=== PATIENT | male | born 1935 | race Caucasian/White ===

== ENCOUNTER 2018-06-17 05:12 | Inpatient (IN) | payer OTHER ==
[2018-06-17] VITALS (8 sets, daily range): BP systolic 91–136; BP diastolic 55–83
[~2018-06-17] VITALS: Ht 182.9 cm; Wt 88.5 kg
[2018-06-17] MEDS ORDERED: ZYPREXA15 MG PO (05:32)
[2018-06-17] MEDS ORDERED: TYLENOL325 MG PO (05:51)
[2018-06-17] MEDS ORDERED: ASPIR 8181 MG PO (05:51)
[2018-06-17] MEDS ORDERED: CORRECTOL5 M1 PO (05:52)
[2018-06-17] MEDS ORDERED: LIPITOR40 MG PO (05:52)
[2018-06-17] MEDS ORDERED: PEPCID AC10 MG PO (05:53)
[2018-06-17] MEDS ORDERED: VITAMIN D1000 UNI1 PO (05:53)
[2018-06-17] MEDS ORDERED: LISINOPRIL5 MG PO (05:54)
[2018-06-17] MEDS ORDERED: NORCO 5-325 TA1 EACH PO (05:54)
[2018-06-17] MEDS ORDERED: NAMENDA 10 MG T10 MG PO (05:54)
[2018-06-17] MEDS ORDERED: LOPRESSOR25 PO (05:55)
[2018-06-17] MEDS ORDERED: SEROQUEL 25 MG25 M1 PO (05:56)
[2018-06-17] MEDS ORDERED: MILK OF MA2400 MG/11 PO (05:56)
[2018-06-17] MEDS ORDERED: MIRALAX17 GM PO (05:56)
[2018-06-17] MEDS ORDERED: SENNA-S LAXATI1 EACH PO (05:57)
[2018-06-17] MEDS ORDERED: TRAZODONE HCL100 MG PO (06:00)
[2018-06-17 06:01] LABS: ABSOLUTE NEUTROPHILS 4.7 thou/uL (1.4-8.2); BASOPHILS 0.8 % (0.0-2.0); EOSINOPHILS 4.1 % (0.0-3.0); HEMATOCRIT 44.9 % (42.0-52.0); HEMOGLOBIN 14.8 gm/dL (14.0-18.0); MCHC 32.9 g/dL (28.0-37.0); MONOCYTES 10.1 % (1.0-8.0); PLATELET COUNT 241 thou/uL (150-400); RBC 5.28 mil/uL (4.50-6.00); RDW 17.3 % (10.5-14.5); WBC 8.8 thou/uL (4.0-11.0)
[2018-06-17] MEDS ORDERED: EFFEXOR XR75 MG PO (06:02)
[2018-06-17 06:14] LABS: CALCIUM 8.9 mg/dL (8.5-10.1); CREATININE 1.2 mg/dL (0.7-1.3); POTASSIUM 3.8 mmol/L (3.5-5.1)
--- NOTE | 2018-06-17 08:10 | EKG ---
[address] [address] ELECTROCARDIOGRAM REPORT Name: DIAZ MARIN Room #: 421-P ADM IN M.R.#: [id number] ������������������ Admission: 06/17/18 ������������������ Attend Phys: Edu Kraft MD Discharge: ������������������ Date of : 37 Report #: [id number] ����������������������������������������������������������������� [id number] THIS REPORT FOR: //name// [facility] ED Test Date: 2018-06-17 Test Time: 05:47:36 Pat Name: DIAZ MARIN Department: Room: 421 Gender: M Director Of Customer Acquisition: EMIR : 1935 Requested By: Nathaniel Boogie Order Number: [id number] MD: Gopi Cruz Measurements Intervals [place] Rate: 57 P: 26 NV: 226 QRS: -13 QRSD: 164 T: 166 QT: 494 QTc: 481 Interpretive Statements Sinus rhythm Prolonged NV interval Left bundle branch block No previous ECG available for comparison Electronically Signed On 06-17-2018 8:10:23 CDT by Gopi Cruz [email or web address] ��������������������������������������������� <ELECTRONICALLY SIGNED> ���������������������������������������� By: Gopi Cruz MD ��������������������������������������������� 06/17/18 0810 0547 0547 Gopi Cruz MD /EMILEE
--- NOTE | 2018-06-17 10:40 | NUR ---
INITIAL ASSESSMENT: Pt evaluated for d/c planning needs. Reviewed chart and spoke with nurse, pt and pt's DPOA Kristopher Prieto. Pt had hip fracture in January while living in [place] and went to inpatient rehab there. Pt lives at [facility] with his . Pt uses walker for ambulation, and has foot drop with brace that he normally does not wear. Pt had home health in the past. Pt is scheduled to have surgery this afternoon. Will follow for d/c planning needs.
--- NOTE | 2018-06-17 13:32 | 2DMMODE ---
[facility] [place] [address] 2 D/M-MODE ECHOCARDIOGRAM Name: DIAZ MARIN Room #: 421-P [facility] IN .R.#: [id number] ������������� Admission: 06/17/18 ������������� Attend Phys: Edu Kraft MD Discharge: ��� ������������� ��� Date of : 37 Date of Service: 06/17/18 1331 �� Report #: [id number] �������� ��������������������������������������������[id number] THIS REPORT FOR: //name// APPROVED REPORT Study performed: 06/17/2018 12:45:46 EXAM: Comprehensive 2D, Doppler, and color-flow Echocardiogram Patient Location: Bedside Status: routine BSA: 2.11 HR: 61 bpm BP: 111/69 mmHg Rhythm: LBBB Other Information Study Quality: Adequate/flat on back, patient unable to move. Off axis windows. Indications Pre-Op. Hx: CABG, PAF, TIA, HTN, HLP. 2D Dimensions RVDd: 35.85 mm IVSd: 11.03 (7-11mm) LVOT Diam: 23.33 (18-24mm) LVDd: 46.64 mm PWd: 10.24 (7-11mm) LVDs: 32.65 (25-40mm) Aortic Root: 39.75 mm Volumes Left Atrial Volume (Systole) Single Plane 4CH: 44.05 mL Single Plane 2CH: 57.41 mL LA ESV Index: 25.00 mL/m2 Aortic Valve AoV Peak Jorge.: 1.39 m/s AO Peak Gr.: 7.72 mmHg LVOT Max P.14 mmHg LVOT Max V: 0.89 m/s RICHA Vmax: 2.73 cm2 Mitral Valve E/A Ratio: 0.6 MV Decel. Time: 274.81 ms [facility] [place] [address] 2 D/M-MODE ECHOCARDIOGRAM Name: DIAZ MARIN Room #: 421-P [facility] IN ..#: [id number] ������������� Admission: 06/17/18 ������������� Attend Phys: Edu Kraft MD Discharge: ��� ������������� ��� Date of : 37 Date of Service: 06/17/18 1331 �� Report #: [id number] �������� ��������������������������������������������[id number] MV E Max Jorge.: 0.57 m/s MV A Jorge.: 0.93 m/s MV PHT: 79.70 ms IVRT: 115.34 ms Pulmonary Valve PV Peak Jorge.: 0.85 m/s PV Peak Gr.: 2.89 mmHg Pulmonary Vein P Vein S: 0.39 m/s P Vein A: 0.23 m/s P Vein D: 0.24 m/s P Vein A Dur.: 92.3 msec P Vein S/D Ratio: 1.63 Tricuspid Valve TR Peak Jorge.: 2.11 m/s RAP Estimate: 5.00 mmHg TR Peak Gr.: 17.86 mmHg PA Pressure: 23.00 mmHg Left Ventricle The left ventricle is normal size. Paradoxical septal motion consistent with LBBB. There is normal left ventricular wall thickness. The left ventricular systolic function is low normal. LVEF is 50%. Mild diastolic dysfunction is present (impaired relaxation pattern). Right Ventricle The right ventricle is normal size. The right ventricular systolic function is normal. Atria The left atrium size is normal. The atrial septum is aneurysmal. The right atrium size is normal. Aortic Valve The Aortic valve is moderately sclerotic. No aortic regurgitation is present. There is no aortic valvular stenosis. Mitral Valve The mitral valve leaflets are normal in structure. Moderate mitral annular calcification. Mild mitral regurgitation. No evidence of mitral valve stenosis. Tricuspid Valve The tricuspid valve is normal in structure. Trace tricuspid regurgitation. Estimated PAP is 25mmHg. [address] [address] 2 D/M-MODE ECHOCARDIOGRAM Name: DIAZ MARIN Room #: 421-P [facility] IN .R.#: [id number] ������������� Admission: 06/17/18 ������������� Attend Phys: Edu Kraft MD Discharge: ��� ������������� ��� Date of : 37 Date of Service: 06/17/18 1331 �� Report #: [id number] �������� ��������������������������������������������[id number] Pulmonic Valve Pulmonic valve is not well visualized. Trace pulmonic regurgitation. Great Vessels Aortic root is mildly dilated at 4.0cm. Ascending aorta is not well visualized. IVC is normal in size and collapses >50% with inspiration. Pericardium There is no pericardial effusion. <Conclusion> The left ventricle is normal size. LVEF is 50%. The left atrium size is normal. The right atrium size is normal. The atrial septum is aneurysmal. The Aortic valve is moderately sclerotic. No aortic regurgitation is present. There is no aortic valvular stenosis. The mitral valve leaflets are normal in structure. Moderate mitral annular calcification. Mild mitral regurgitation. The tricuspid valve is normal in structure. Trace tricuspid regurgitation. Estimated PAP is 25mmHg. Pulmonic valve is not well visualized. Trace pulmonic regurgitation. Aortic root is mildly dilated at 4.0cm. There is no pericardial effusion. ��������������������������������������������� <ELECTRONICALLY SIGNED> ���������������������������������������� By: Angel Dyer MD ��������������������������������������������� 06/17/18 1331 30 30 Angel Dyer MD /INF
--- NOTE | 2018-06-17 14:34 | NUR ---
83 YO MALE ADMITTED TO 421 BY CART FROM ER. A&OX4, FIELD IV INTACT IN L AC. HEVER TRACTION IN PLACE TO LLE. C/O PAIN AT 6/10. ADMISSION ASSESSMENT COLPETE, NS STARTED @ 75/HR, MORPHINE 2MG IV GIVEN FOR PAIN. ORIENTED PT TO ROOM/CALL LIGHT. PT IS NPO, PLANS ARE TO HAVE SURGERY LATER TODAY. SURGERY CONSENT AND BLOOD TRANSFUSION CONSENT HAVE BEEN SIGNED, CASRTO WITH 16F PLACED.
[2018-06-17 17:19] LABS: HEMATOCRIT 42.5 % (42.0-52.0)
[2018-06-17 20:11] LABS: HEMATOCRIT 42.5 % (42.0-52.0)
[2018-06-18 00:02] VITALS: BP 126/66
[2018-06-18 01:00] VITALS: BP 101/68
[2018-06-18 02:00] VITALS: BP 112/71
[2018-06-18 05:11] LABS: HEMATOCRIT 38.3 % (42.0-52.0); HEMOGLOBIN 12.6 gm/dL (14.0-18.0); MCH 28.3 pg (26.0-34.0); MCV 85.8 fL (80.0-100.0); RBC 4.46 mil/uL (4.50-6.00); RDW 16.9 % (10.5-14.5)
[2018-06-18 05:26] LABS: CALCIUM 8.6 mg/dL (8.5-10.1); POTASSIUM 4.4 mmol/L (3.5-5.1)
--- NOTE | 2018-06-18 06:36 | NUR ---
ASSUMED PT CARE 2030 ON RETURN FROM SX. PT CONFUSED AND ALERT TO SELF. PT ASSESSMENT COMPLETED AND VSS. PT IMPULSIVE AND RESTLESS. PT REMOVED IV, AND BROKE CASTRO FROM STAT LOCK AND ATTEMPTED TO REMOVE CASTRO. CASTRO WAS FLUSHED AND ASSESSED FOR URINE OUTPUT. CASTRO IS STILL WORKING. PT ALSO REMOVED SURGICAL DRESSING AND ATTEMPTED TO REMOVE HEMOVAC. HEMOVAC IN PLACE AND DRAINING. PT WAS LOG ROLLED AND SURGICAL SITE WAS REDRESSED WITH XEROFORM, 4X4'S, AND ABD PADS THEN REINFORNCED WITH TAPE. ABDUCTOR PILLOW WAS OBTAINED AND APPLIED TO PT. ORDER FOR RESTRAINTS ALSO OBTAINED AT THIS TIME. SURGEON INFORMED THIS AM. WILL PASS REPORT ON TO DAY NURSE.
--- NOTE | 2018-06-18 06:58 | O ---
[address] [address] OPERATIVE REPORT Name: DIAZ MARIN Room #: 421-P [facility] IN M.R.#: [id number] Admission: 06/17/18 ������������������ Attend Phys: Edu Kraft MD Discharge: ������������������ Date of : 36 Report #: [id number] THIS REPORT FOR: //name// CC: Edu Hdz DATE OF SERVICE: 06/17/2018 SERVICE: Orthopedics. FACILITY: [facility]. SURGEON: Vish Hdz M.D. LEAD QA ANALYST: Jayda Hernandez NP. INDICATION FOR LEAD QA ANALYST: Retraction, reduction and assistance with reconstruction and internal fixation. PREOPERATIVE DIAGNOSIS: Left periprosthetic femoral shaft fracture. POSTOPERATIVE DIAGNOSIS: Left periprosthetic femoral shaft fracture. PROCEDURE: Open reduction and internal fixation of the left periprosthetic femoral shaft fracture. COMPLICATIONS: None. DRAINS: One Hemovac. SPECIMEN: None. ESTIMATED BLOOD LOSS: 750 mL. ANESTHESIA TYPE: General. FINDINGS: 1. Stable hip prosthesis. 2. Synthes large fragment lateral femoral plate. HISTORY: The patient is an 83-year-old gentleman who sustained a fall, which resulted in a left femoral shaft fracture. We had a discussion about treatment options with him and his durable power of document review attorney and they ultimately elected to undergo surgical treatment after the risks, benefits, alternatives and indications were discussed. Risks include but not limited to pain, bleeding, [address] [address] OPERATIVE REPORT Name: DIAZ MARIN Room #: 421-P ADM IN M.R.#: [id number] Admission: 06/17/18 ������������������ Attend Phys: Edu Kraft MD Discharge: ������������������ Date of : 36 Report #: [id number] injury to nerves or blood vessels, malunion, nonunion and complications related to anesthesia up to and including . PROCEDURE IN DETAIL: After left lower extremity was correctly identified in the preoperative holding area as the operative extremity, the patient was taken to the operating room where general anesthesia was induced without complication. Prophylactic antibiotic was administered at appropriate time. He was padded appropriately. Left leg was prepped and draped in standard sterile fashion. Timeout procedure performed. Standard lateral approach was made to the femur. Dissection was taken down to the IT band, which was then incised throughout the length of the incision and then the vastus lateralis was visualized and dissected the vastus lateralis off the intermuscular septum laterally working way down to the femur where the fracture could be visualized and was eventually exposed. During the exposure, the subperiosteal dissection was performed around the posterior side of the femur in order to allow passage of both reduction clamps and cerclage cables. 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 As this was encountered, it believed to have significant amount of bleeding until we could obtain hemostasis. It was a serpiginous shaped artery that was encountered on multiple occasions until I could control bleeding proximally and distally. After hemostasis was achieved and proceeded with fixation, a 1.0 mm cerclage wire was placed x 2 around the fracture after provisional fixation was achieved. Fracture site was cleaned of hematoma the fracture was irrigated. Then, the clamps x 2 were used to reduce the fracture while a reduction maneuver was performed. C-arm was used to assist as well. When good fixation was felt to be achieved with good reduction, the cerclage wires were then placed allowing good compression and stability of the fracture. The clamps were then removed. A long plate was selected to be utilized and bridge mode. The plate was placed over the lateral aspect of the femur and it was fixed distally and proximally with nonlocking screws utilizing a unicortical screw proximally and then the distal and then x-rays were taken and is happy with the appearance of the fracture and the reduction as well as the placement of the plates. We proceeded with internal fixation. The distal screws were placed first obtaining a total of 8 cortices of fixation with good screws bed with excellent purchase and then the fixation proximally. Ultimately, it was 2 unicortical locking screws with two large cerclage cables, rigid fixation was achieved. The wound was then copiously irrigated, 1 gram of vancomycin powder was placed within the wound. The IT band was closed over a drain with 0 Vicryl suture in gyjdkn-as-wkbor fashion. The skin was closed with 2-0 Vicryl followed by skin janet. Sterile [address] [address] OPERATIVE REPORT Name: DIAZ MARIN Room #: 421-P [facility] IN M.R.#: [id number] Admission: 06/17/18 ������������������ Attend Phys: Edu Kraft MD Discharge: ������������������ Date of : 37 Report #: [id number] dressings applied. The patient was awakened from anesthesia and taken to recovery room in stable condition. No complications. All counts correct. ��������������������������������������������� <ELECTRONICALLY SIGNED> ���������������������������������������� By: Vish Hdz MD ��������������������������������������������� 06/18/18 0658 2129 0029 Vish Hdz MD /nt
--- NOTE | 2018-06-18 07:55 | EKG ---
[place] [address] [facility] [place] [address] ELECTROCARDIOGRAM REPORT Name: DIAZ MARIN Room #: 421-P ADM IN M.R.#: [id number] ������������������ Admission: 06/17/18 ������������������ Attend Phys: Edu Kraft MD Discharge: ������������������ Date of : 36 Report #: [id number] ����������������������������������������������������������������� [id number] THIS REPORT FOR: //name// [facility] Test Date: 2018-06-17 Test Time: 19:40:21 Pat Name: DIAZ MARIN Department: Room: 421 P Gender: M Crossing Gateman: Criselda RIDER : 1935 Requested By: Alina Velazquez Order Number: [id number] MD: Isaac Goode Measurements Intervals [place] Rate: 86 P: -14 NH: 145 QRS: -38 QRSD: 155 T: 129 QT: 433 QTc: 518 Interpretive Statements Sinus rhythm Left bundle branch block Compared to ECG 06/17/2018 05:47:36 First degree AV block no longer present Electronically Signed On 06-18-2018 7:54:58 CDT by Isaac Goode [email or web address] ��������������������������������������������� <ELECTRONICALLY SIGNED> ���������������������������������������� By: Isaac Goode MD, [facility] ��������������������������������������������� 06/18/18 0754 39 39 Isaac Goode MD, [facility] /EPI
[2018-06-18 08:32] VITALS: BP 111/71
--- NOTE | 2018-06-18 10:34 | NUR ---
PT AWAKE THOUGH CONFUSED, REMAINS IN SOFT WRIST RESTRAINTS AT THIS TIME. IV INTACT IN R AC. DRSG TO R HIP D/C/I, HEMOVAC AND CASTRO CATH INTACT. PT IS CALM. PT C/O PAIN EARLIER AND GIVEN TORDOL IV. CALL LIGHT W/I REACH, WILL CONT. TO WORK TOWARD RELEASING WRIST RESTRAINTS, WILL MONITOR AT LEAST EVERY 1 HR.
--- NOTE | 2018-06-18 15:34 | NUR ---
REMOVED SOFT WRIST RESTRAINTS AT 1230. PT CALM, NON IMPULSIVE, NOT TRYING TO PULL ON L HIP DRSG, HEMOVAC, IV. MATTHEW ECT., SON AT BEDSIDE WHILE PT EATING LUNCH. PT STILL CONFUSED THOUGH PLEASANT. WILL CONT TO MONITOR.
[2018-06-18 16:50] VITALS: BP 113/55
--- NOTE | 2018-06-18 17:00 | NUR ---
CM CALLED AND SPOKEW IHT [facility] AT [facility] LINE . SHE INDICATED THAT SHE WOULD FEEL BETTER IF PT WERE TO GO SKILLED FOR A TIME TO ENSURE THAT PT WOULD BE ABLE TO MAINTAIN NWB OF LLE PRIOR TO HIM RETURNING TO HIS [facility] APARTMENT WITH HIS AND DOG. CM CALLED AND SPOKE WITH PT'S SON/DPOA AND HE IS AGREEABLE WITH REFERRAL BEING SENT TO [facility] FOR REVIEW FOR POSSIBLE ADMISSION. CM TO FOLLOW INDICATED WITH DC PLANNING.
[2018-06-18 19:24] VITALS: BP 113/54
--- NOTE | 2018-06-19 03:10 | NUR ---
PT WAS RESTLESS AT THE START OF SHIFT,NEEDED CONSTANT REMINDER TO LEAVE TUBINGS ALONE.SON VISITED AT ,ALERTED NURSE THAT PT PULLED HIS HEMOVAC OUT,VAC STILL IN IN PLACE ON ASSESSMENT.SNACK OFFERED TO PT AND HE ACCEPTED,MEDS ADMINISTERED OREDERED.STAT LOCK TO PT'S CASTRO REPLACED.PT ASLEEP ON HIS BED AT THIS TIME.DRSG TO HIS L HIP C/D/I.FALL PRECAUTIONS IN PLACE,CALL LIGHT WITHIN REACH.
[2018-06-19 05:57] LABS: HEMATOCRIT 28.6 % (42.0-52.0); MCH 28.9 pg (26.0-34.0); MCHC 33.6 g/dL (28.0-37.0); MCV 85.9 fL (80.0-100.0); RBC 3.33 mil/uL (4.50-6.00); RDW 16.8 % (10.5-14.5); WBC 8.2 thou/uL (4.0-11.0)
[2018-06-19 06:04] VITALS: BP 128/62
[2018-06-19 06:09] LABS: HEMOGLOBIN 9.6 gm/dL (14.0-18.0)
[2018-06-19 07:15] VITALS: BP 125/63
--- NOTE | 2018-06-19 09:52 | NUR ---
FAXED REFERRAL TO [facility] SKILLED SPOKE WITH [facility] IN ADM. AND SHE RECEIVED REFERRAL AND WILL BE ABLE TO ACCEPT PT. ANTICIPATE DC SAT. 06/20. IF PT. DISCHARGES FAX DC ORDERS TO [phone] AND CALL [phone] TO SET UP TRANSPORT AND GIVE REPORT.
--- NOTE | 2018-06-19 12:04 | NUR ---
FAMILY AT BEDSIDE. EXPRESS CONCERNS ABOUT LEFT EYE DROOPING AND CHANGE IN CONDITION FROM YESTERDAY WITH HISTORY OF TIA. DR. SHAIKH NOTIFIED OF CONCERNS AND FAMILY QUESTIONS.
--- NOTE | 2018-06-19 14:52 | NUR ---
CASTRO CATHETER REMOVED ACCORDING TO PROTOCOL. 350 ML YELLOW URINE NOTED. HEMOVAC DRAIN REMOVED ORDERED, NO ACTIVE BLEEDING NOTED. 4X4 AND TEGADERM IN PLACE. 5 ML SANGINOUS DRAINAGE NOTED. PT TOLERATED BOTH PROCEDURES. WILL CONTINUE TO MONITOR.
[2018-06-19 17:46] VITALS: BP 126/58
--- NOTE | 2018-06-19 19:29 | NUR ---
ASSUMED CARE OF PT AT 0700. ASSESSMENT COMPLETED. ALERT TO SELF ONLY, NOT IMPULSIVE. REPORTING LEFT LEG PAIN, PAIN MEDS GIVEN ORDERED. NO OTHER CHANGE IN STATUS.
[2018-06-19 21:00] VITALS: BP 144/64
--- NOTE | 2018-06-20 03:48 | NUR ---
ASSUMED PT CARE 1899. PT ALERT TO SELF. PT REPORTS PAIN, SEE EMAR. PT DENIES N/V. IV DRESSING C/D/I, NO SIGNS OF INFILTRATION. ABDUCTOR PILLOW IN PLACE. FALL RISK PRECAUTIONS IN PLACE. FREQURNT ROUNDING. CALL LIGHT AND PERSONAL BELONINGS WITHIN REACH, WILL CONTINUE POC UNTIL EOS.
[2018-06-20 04:00] VITALS: BP 113/59
[2018-06-20 04:27] LABS: HEMATOCRIT 27.8 % (42.0-52.0); HEMOGLOBIN 9.5 gm/dL (14.0-18.0); MCH 29.3 pg (26.0-34.0); MCV 86.1 fL (80.0-100.0); RBC 3.23 mil/uL (4.50-6.00); RDW 16.5 % (10.5-14.5); WBC 7.7 thou/uL (4.0-11.0)
[2018-06-20 07:38] VITALS: BP 128/64
[2018-06-20 10:17] VITALS: BP 128/64
--- NOTE | 2018-06-20 10:35 | NUR ---
ASSUMED CARE OF PT AT 0700. ASSESSMENT COMPLETED. ALERT TO SELF AND SITUATION ONLY, HX DEMENTIA. C/O LEFT LEG PAIN, PAIN MEDS GIVEN ORDERED. POD 3. LEFT HIP INCISION DRESSING CHANGED ORDERED, WELL APPROXIMATED. +2/+[address] INCONTINENT. ROOM AIR. WILL CONTINUE TO MONITOR.
[2018-06-20] MEDS ORDERED: METOPROLOL SUCC25 M1 PO (13:32)
[2018-06-20] MEDS ORDERED: NORCO 5-325 TA1 EACH PO (16:11)
--- NOTE | 2018-06-20 17:15 | NUR ---
DISCHARGE ORDERS. REPORT CALLED TO [facility], SPOKE TO FRANCINE. TIM AGUDELO ([facility]) AWARE OF PT TRANSFER. PT LEFT IN STABLE CONDITION VIA WHEELCHAIR AT 17:15. IV REMOVED, NO BLEEDING.
== END 2018-06-20 17:12 | DRG 481 ==
LOC: ER 05:12 → 4E 06:30 → EROBS 06:30 → 4E 07:16
PROVIDERS: Anesthesiology; Emergency Medicine; Orthopaedic Surgery Sports Medicine; ADMIT Hospitalist
PROC: 0QS904Z Reposition Left Femoral Shaft with Internal Fixation Device, Open Approach (ICD-10-PCS; principal; 2018-06-17)
DX: S72.342A Displaced spiral fracture of shaft of left femur, initial encounter for closed fracture (principal); D62 Acute posthemorrhagic anemia; M97.02XA Periprosthetic fracture around internal prosthetic left hip joint, initial encounter; I44.7 Left bundle-branch block, unspecified; M62.84 Sarcopenia; F03.90 Unspecified dementia, unspecified severity, without behavioral disturbance, psychotic disturbance, mood disturbance, and anxiety; E78.5 Hyperlipidemia, unspecified; F32.9 Major depressive disorder, single episode, unspecified; G47.00 Insomnia, unspecified; I25.10 Atherosclerotic heart disease of native coronary artery without angina pectoris; K21.9 Gastro-esophageal reflux disease without esophagitis; M19.90 Unspecified osteoarthritis, unspecified site; I48.2 Chronic atrial fibrillation; F29 Unspecified psychosis not due to a substance or known physiological condition; Z66 Do not resuscitate; M81.0 Age-related osteoporosis without current pathological fracture; W18.39XA Other fall on same level, initial encounter; Y93.01 Activity, walking, marching and hiking; Z96.649 Presence of unspecified artificial hip joint; K59.00 Constipation, unspecified; R41.0 Disorientation, unspecified; D72.829 Elevated white blood cell count, unspecified; Z95.1 Presence of aortocoronary bypass graft; Z47.89 Encounter for other orthopedic aftercare; Z86.73 Personal history of transient ischemic attack (TIA), and cerebral infarction without residual deficits; Z79.82 Long term (current) use of aspirin; Z79.899 Other long term (current) drug therapy; Y92.89 Other specified places as the place of occurrence of the external cause; Y99.8 Other external cause status
CPT/HCPCS: 10084; 50010; 50101; 50341; 50382; 50414; 51412; 51816; 55430; 56528; 56667; 56668; 56762; 62110; 62900; 70005

== ENCOUNTER 2019-04-13 17:07 | Emergency (ER) | payer OTHER ==
[~2019-04-13] VITALS: Ht 188 cm; Wt 83.9 kg
[~2019-04-13 17:07] MED LIST: ASPIR 8181 MG PO; CORRECTOL5 M1 PO; EFFEXOR XR75 MG PO; LIPITOR40 MG PO; LISINOPRIL5 MG PO; LOPRESSOR25 PO; METOPROLOL SUCC25 M1 PO; MILK OF MA2400 MG/11 PO; MIRALAX17 GM PO; NAMENDA 10 MG T10 MG PO; NORCO 5-325 TA1 EACH PO; PEPCID AC10 MG PO; SENNA-S LAXATI1 EACH PO; SEROQUEL 25 MG25 M1 PO; TRAZODONE HCL100 MG PO; TYLENOL325 MG PO; VITAMIN D1000 UNI1 PO; ZYPREXA15 MG PO
[2019-04-13] MEDS ORDERED: MOBIC7.5 MG PO (18:55)
[2019-04-13 21:28] VITALS: BP 151/89
== END 2019-04-13 21:30 | disposition home or self-care (01) ==
LOC: ER 17:07
DX: M25.552 Pain in left hip (principal); I48.91 Unspecified atrial fibrillation; E78.5 Hyperlipidemia, unspecified; I10 Essential (primary) hypertension; K21.9 Gastro-esophageal reflux disease without esophagitis; F32.9 Major depressive disorder, single episode, unspecified; E55.9 Vitamin D deficiency, unspecified; F03.90 Unspecified dementia, unspecified severity, without behavioral disturbance, psychotic disturbance, mood disturbance, and anxiety; Z95.1 Presence of aortocoronary bypass graft; Z86.73 Personal history of transient ischemic attack (TIA), and cerebral infarction without residual deficits; M19.90 Unspecified osteoarthritis, unspecified site; W05.0XXA Fall from non-moving wheelchair, initial encounter; Y93.89 Activity, other specified; Y92.89 Other specified places as the place of occurrence of the external cause; Y99.8 Other external cause status

== ENCOUNTER 2019-08-08 13:33 | Inpatient (IN) | payer OTHER ==
[~2019-08-08] VITALS: Ht 182.9 cm; Wt 93.8 kg
--- NOTE | ~2019-08-08 | EMS ---
[facility] [address] [place] [address] EMS Patient Care Report Name: DIAZ MARIN Room #: 362-P ADM IN M.R.#: [id number] Admission: 08/08/19 Attend Phys: Edu Kraft MD Discharge: Date of : 36 Report #: [id number] THIS REPORT FOR: //name// Report Transmitted: 08/09/2019 12:41 EMS Care Summary [facility] MED-ACT Incident [id number] @ 08/08/2019 12:59 Incident Location [address] [place] [id number] Patient DIAZ MARIN Male, 84 Years 1935 Patient Address [address] [place] [address] Patient History Dementia,Hyperlipidemia,Gastro-Esophageal Reflux Disease (GERD),Anemia,Coronary Artery Disease (CAD), Patient Allergies No known allergies, Patient Medications Venlafaxine, Atorvastatin, Seroquel, Loperamide, Trazodone, Famotidine, Lisinopril, Namenda, Toprol, APAP w/Codeine, Senokot, Aspirin, Cholecalciferol, Chief Complaint altered mental status Disposition Transported No Lights/[place] [facility] Reason Stroke/CVA Transported To [facility] Narrative EMS was dispatched for a patient possibly having a stroke. Prior to EMS [facility] [address] [place] [address] EMS Patient Care Report Name: DIAZ MARIN Room #: 362-P [facility] IN [facility]#: [id number] Admission: 08/08/19 Attend Phys: Edu Kraft MD Discharge: Date of : 36 Report #: [id number] arrival proper PPE was donned including eye protection, gloves and a surgical mask. Upon EMS arrival nursing staff advised the patient was experiencing altered mental status and weakness in his left leg. Nursing staff then wheeled the patient to the front door in a wheelchair. EMS began assessment on the patient, starting with a stroke scale. The patient was able to follow commands, and nothing was found on the stroke test. The patient was able to speak and communicate with EMS but was only alert to himself, which nursing staff said was abnormal. They also advised the patient is normally up and around, and very active. EMS loaded the patient onto the cot and placed him in the ambulance. EMS continued to assess the patient. The patient was placed on the monitor and a full set of vital signs was taken. EMS also performed a 12 lead ECG and obtained a blood glucose level. The patient's temperature was taken and a surgical mask was placed on the patient. EMS continued to reassess the patient. The patient was able push with force with both feet but not able to lift his left leg. The patient maintained a GCS of 14 throughout the transport. The patient was taken to [facility] Line Initial Vitals @13:16P: 90,Pain: 0/10,SpO2: 94,GA Suspected: false @13:20P: 90,GCS: 14,SpO2: 93,GA Suspected: false @13:18P: 89,R: 20,BP: 128/82,Pain: 0/10,GCS: 14,SpO2: 94,Revised Trauma: 12,GA Suspected: false @13:11P: 91,R: 20,BP: 133/77,Pain: 0/10,GCS: 14,Temp: 98.6F,Glucose: 98,SpO2: 91,Revised Trauma: 12,GA Suspected: false Assessments @13:05MENTAL:Confused,Person Oriented,SKIN:HEENT:Head/Face: No Abnormalities,Neck/Airway: No Abnormalities,LUNG SOUNDS:ABDOMEN:PELVIS//GI:EXTREMITIES:PULSE:NEURO: Impression Altered Mental Status Procedures @13:05ALS AssessmentResponse: UnchangedSucceeded@13:1612-Lead ECGResponse: UnchangedSucceeded Timeline 12:57,Call Received 12:57,Psap Call 12:59,Dispatched 12:59,[place] [address] EMS Patient Care Report Name: DIAZ MARIN Room #: 362-P ADM IN [facility].#: [id number] Admission: 08/08/19 Attend Phys: Edu Kraft MD Discharge: Date of : 37 Report #: [id number] 13:04,On Scene 13:05,At Patient 13:05,ALS Assessment,Response: UnchangedSucceeded, 13:11,BP: 133/77 M,PULSE: 91,RR: 20 R,SPO2: 91 Ox,ETCO2: ,B,PAIN: 0,GCS: 14, 13:16,12-Lead ECG,Response: UnchangedSucceeded, 13:16,BP: / M,PULSE: 90,RR: R,SPO2: 94 Ox,ETCO2: ,BG: ,PAIN: 0,GCS: , 13:18,BP: 128/82 M,PULSE: 89,RR: 20 R,SPO2: 94 Ox,ETCO2: ,BG: ,PAIN: 0,GCS: 14, 13:20,BP: / M,PULSE: 90,RR: R,SPO2: 93 Ox,ETCO2: ,BG: ,PAIN: ,GCS: 14, 13:20,Depart Scene 13:27,At Destination 13:48,Call Closed Disclaimer v1.1 Copyright 2020 [employer] This EMS Care Summary contains data elements from the applicable legal record (which may be displayed differently). It is designed to provide pertinent information for the following purposes: continuity of care, clinical quality, and state data reporting. The complete legal record is available to ED staff and administrators of the receiving hospital in [employer]'s Patient Tracker. All data is provided "as is."
--- NOTE | ~2019-08-08 | EMS ---
[facility] [address] [place] [address] EMS Patient Care Report Name: DIAZ MARIN Room #: 362-P ADM IN M.R.#: [id number] Admission: 08/08/19 Attend Phys: Edu Kraft MD Discharge: Date of : 36 Report #: [id number] THIS REPORT FOR: //name// Report Transmitted: 08/09/2019 11:46 EMS Care Summary [facility] MED-ACT Incident [id number] @ 08/08/2019 12:59 Incident Location [address] [place] [address] Patient DIAZ MARIN Male, 84 Years 1935 Patient Address [address] [place] [id number] Patient History Dementia,Hyperlipidemia,Gastro-Esophageal Reflux Disease (GERD),Anemia,Coronary Artery Disease (CAD), Patient Allergies No known allergies, Patient Medications Venlafaxine, Atorvastatin, Seroquel, Loperamide, Trazodone, Famotidine, Lisinopril, Namenda, Toprol, APAP w/Codeine, Senokot, Aspirin, Cholecalciferol, Chief Complaint altered mental status Disposition Transported No Lights/[place] Dispatch Reason Stroke/CVA Transported To [facility] Narrative EMS was dispatched for a patient possibly having a stroke. Prior to EMS [facility] [address] [place] [address] EMS Patient Care Report Name: DIAZ MARIN Room #: 362-P [facility] IN [facility]#: [id number] Admission: 08/08/19 Attend Phys: Edu Kraft MD Discharge: Date of : 36 Report #: [id number] arrival proper PPE was donned including eye protection, gloves and a surgical mask. Upon EMS arrival nursing staff advised the patient was experiencing altered mental status and weakness in his left leg. Nursing staff then wheeled the patient to the front door in a wheelchair. EMS began assessment on the patient, starting with a stroke scale. The patient was able to follow commands, and nothing was found on the stroke test. The patient was able to speak and communicate with EMS but was only alert to himself, which nursing staff said was abnormal. They also advised the patient is normally up and around, and very active. EMS loaded the patient onto the cot and placed him in the ambulance. EMS continued to assess the patient. The patient was placed on the monitor and a full set of vital signs was taken. EMS also performed a 12 lead ECG and obtained a blood glucose level. The patient's temperature was taken and a surgical mask was placed on the patient. EMS continued to reassess the patient. The patient was able push with force with both feet but not able to lift his left leg. The patient maintained a GCS of 14 throughout the transport. The patient was taken to [facility] Line Initial Vitals @13:16P: 90,Pain: 0/10,SpO2: 94,DE Suspected: false @13:20P: 90,GCS: 14,SpO2: 93,DE Suspected: false @13:18P: 89,R: 20,BP: 128/82,Pain: 0/10,GCS: 14,SpO2: 94,Revised Trauma: 12,DE Suspected: false @13:11P: 91,R: 20,BP: 133/77,Pain: 0/10,GCS: 14,Temp: 98.6F,Glucose: 98,SpO2: 91,Revised Trauma: 12,DE Suspected: false Assessments @13:05MENTAL:Confused,Person Oriented,SKIN:HEENT:Head/Face: No Abnormalities,Neck/Airway: No Abnormalities,LUNG SOUNDS:ABDOMEN:PELVIS//GI:EXTREMITIES:PULSE:NEURO: Impression Altered Mental Status Procedures @13:05ALS AssessmentResponse: UnchangedSucceeded@13:1612-Lead ECGResponse: UnchangedSucceeded Timeline 12:57,Call Received 12:57,Psap Call 12:59,Dispatched 12:59,[place] [address] EMS Patient Care Report Name: DIAZ MARIN Room #: 362-P ADM IN [facility]#: [id number] Admission: 08/08/19 Attend Phys: Edu Kraft MD Discharge: Date of : 36 Report #: [id number] 13:04,On Scene 13:05,At Patient 13:05,ALS Assessment,Response: UnchangedSucceeded, 13:11,BP: 133/77 M,PULSE: 91,RR: 20 R,SPO2: 91 Ox,ETCO2: ,B,PAIN: 0,GCS: 14, 13:16,12-Lead ECG,Response: UnchangedSucceeded, 13:16,BP: / M,PULSE: 90,RR: R,SPO2: 94 Ox,ETCO2: ,BG: ,PAIN: 0,GCS: , 13:18,BP: 128/82 M,PULSE: 89,RR: 20 R,SPO2: 94 Ox,ETCO2: ,BG: ,PAIN: 0,GCS: 14, 13:20,BP: / M,PULSE: 90,RR: R,SPO2: 93 Ox,ETCO2: ,BG: ,PAIN: ,GCS: 14, 13:20,Depart Scene 13:27,At Destination 13:48,Call Closed Disclaimer v1.1 Copyright 2020 [employer] This EMS Care Summary contains data elements from the applicable legal record (which may be displayed differently). It is designed to provide pertinent information for the following purposes: continuity of care, clinical quality, and state data reporting. The complete legal record is available to ED staff and administrators of the receiving hospital in [employer]'s Patient Tracker. All data is provided "as is."
[~2019-08-08 13:33] MED LIST changes: +MOBIC7.5 MG PO
[2019-08-08 13:38] VITALS: BP 150/92
[2019-08-08 14:54] LABS: ABSOLUTE NEUTROPHILS 10.9 thou/uL (1.4-8.2); BASOPHILS 0.3 % (0.0-2.0); HEMATOCRIT 47.3 % (42.0-52.0); HEMOGLOBIN 15.7 gm/dL (14.0-18.0); MCH 29.9 pg (26.0-34.0); MCHC 33.2 g/dL (28.0-37.0); MCV 90.1 fL (80.0-100.0); MONOCYTES 8.1 % (1.0-8.0); PLATELET COUNT 206 thou/uL (150-400); POLYS 83.6 % (36.0-66.0); RBC 5.25 mil/uL (4.50-6.00); RDW 14.1 % (10.5-14.5)
[2019-08-08 15:12] LABS: ALBUMIN 3.6 g/dL (3.4-5.0); CALCIUM 8.9 mg/dL (8.5-10.1); CREATININE 1.4 mg/dL (0.7-1.3); POTASSIUM 4.3 mmol/L (3.5-5.1); TOTAL BILIRUBIN 0.7 mg/dL (<0.1-1.0); TOTAL PROTEIN 7.4 g/dL (6.4-8.2)
[2019-08-08 15:27] LABS: URINE BILIRUBIN NEGATIVE (Negative); URINE BLOOD NEGATIVE (Negative); URINE CLARITY CLEAR; URINE COLOR YELLOW; URINE GLUCOSE-RANDOM* NEGATIVE (Negative); URINE KETONES NEGATIVE (Negative); URINE LEUKOCYTES-REFLEX NEGATIVE (Negative); URINE NITRITE-REFLEX NEGATIVE (Negative); URINE PROTEIN (DIPSTICK) NEGATIVE (Negative); URINE SPECIFIC GRAVITY 1.015 (1.005-1.035)
[2019-08-08] MEDS ORDERED: LOPERAMIDE2 MG PO (15:35)
[2019-08-08] MEDS ORDERED: NAMENDA 10 MG T10 MG PO (15:37)
[2019-08-08] MEDS ORDERED: SUPER THERAVIT1 EACH PO (15:37)
[2019-08-08 17:54] LABS: CHOLESTEROL 148 mg/dL (<200); HDL CHOLESTEROL 39 mg/dL (>40); LDL CHOLESTEROL 92 mg/dL (<100); TC:HDL 3.8 Ratio (Not establshd); TRIGLYCERIDE 88 mg/dL (<150); VLDL 18 mg/dL (<40)
[2019-08-08 18:06] LABS: TSH 1.329 uIU/mL (0.358-3.740)
[2019-08-08 18:31] VITALS: BP 146/70
[2019-08-08 18:44] LABS: FOLIC ACID 45.8 ng/mL (8.6-58.9)
--- NOTE | 2019-08-08 18:55 | NUR ---
PT ORIENTED TO ROOM AND UNIT. BED LOW AND LOCKED, SIDE RAILS UPX3, CALL LIGHT IN REACH. TELEL APPLIED AND PT IN ENHANCED ISOLATION.
[2019-08-08 20:45] VITALS: BP 138/78
[2019-08-09 04:26] VITALS: BP 141/83
[2019-08-09 06:17] LABS: HEMATOCRIT 44.5 % (42.0-52.0); MCH 30.1 pg (26.0-34.0); MCHC 33.7 g/dL (28.0-37.0); MCV 89.3 fL (80.0-100.0); RBC 4.99 mil/uL (4.50-6.00); RDW 13.8 % (10.5-14.5); WBC 17.5 thou/uL (4.0-11.0)
[2019-08-09 06:22] LABS: CALCIUM 8.6 mg/dL (8.5-10.1); CREATININE 1.2 mg/dL (0.7-1.3); POTASSIUM 3.8 mmol/L (3.5-5.1)
[2019-08-09 07:45] VITALS: BP 141/71
--- NOTE | 2019-08-09 09:00 | EKG ---
[facility] [place] [address] [place] [address] ELECTROCARDIOGRAM REPORT Name: DIAZ MARIN Room #: 362-P ADM IN M.R.#: [id number] Admission: 08/08/19 Attend Phys: Edu Kraft MD Discharge: Date of : 36 Report #: [id number] THIS REPORT FOR: cc: FAM - Family physician unknown FAM - Family physician unknown Isaac Goode MD [facility] THIS REPORT FOR: //name// [facility] ED Test Date: 2019-08-08 Test Time: 13:49:15 Pat Name: DIAZ MARIN Department: Room: [facility] Gender: M Nematologist: esheets : 1935 Requested By: Betty Virgen Order Number: [id number] MD: Isaac Goode Measurements Intervals [place]il Rate: 88 P: 35 AR: 219 QRS: -28 QRSD: 165 T: 155 QT: 418 QTc: 506 Interpretive Statements Sinus rhythm Borderline prolonged AR interval Left bundle branch block Compared to ECG 06/17/2018 19:40:21 No significant changes Electronically Signed On 08-09-2019 8:58:21 CDT by Isaac Goode [email or web address] <ELECTRONICALLY SIGNED> By: Isaac Goode MD, [facility] 08/09/19 0858 [id number] Isaac Goode MD, [facility] /EPI
--- NOTE | 2019-08-09 12:38 | NUR ---
INITIAL ASSESSMENT: Received consult. SW reviewed chart and spoke with nursing and attending physician. Pt was admitted from [facility] [place] due to AMS/left sided weakness. Neuro consulted. Awaiting MRI to be completed. Pt is in Enhanced Isolation to r/o COVID-19. Pt's first test was negative. Second test is pending. Pt unable to answer questions via phone. SW spoke with pt's DPOA, Kristopher Prieto, via phone. Introduced role of SW. Pt and his live in an [place] apt at [facility]. Pt is w/c bound. Pt has been to [facility] in the past for short term rehab following femur fx. Pt's PCP is the [place] [facility]. 5N consult ordered to evaluate pt for possible admission to inpt acute rehab. FINN is following to assist as needed with discharge planning.
--- NOTE | 2019-08-09 16:45 | NUR ---
ASSUMED CARE OF PT AT 0700. PT AOX1 CONVERSANT BUT CONFUSED AND FORGETFUL. INCONTINENT. MRI PENDING SECOND COVID19 SWAB RESULT. SON UPDATED OF PT STATUS BY PHONE. IV FLUIDS INFUSING PER ORDER. WBC TRENDING UP - PHYSICIAN AWARE. EVALUATED BY NEURO AT BEDSIDE. VITALS STABLE. WILL CONT TO MONITOR.
[2019-08-09 17:36] VITALS: BP 136/81
[2019-08-09 20:32] VITALS: BP 157/95
--- NOTE | 2019-08-10 01:37 | NUR ---
PATIENT ASSESSED AND IS ALERT X 1. SKIN WARM AND DRY. RESP EVEN AND UNLABORED. HAS DEMENTIA NOTED. HAS LEFT SIDE WEAKNESS TO LEGS AND ARMS. FAMILY STATED THIS IS BASELENE FOR IT.TELE- SHOWS NSR. IS VERY FIGITY AT TIMES. VERY COOPERATIVE TO CARES. TURNED 2 HOURS. HAS 2 IV LINES LEFT FA AND RIGHT AC. FLUIDS INFUSUNG WELL. NEEDS ASSISTANCE IN FEEDING ON A MECH CHOPPED DIET, ATE ALL SUPPER. NO SKIN ISSUES. IS INCONT OF B&B. HAD A MODERATE BM THIS SHIFT. HAS SOME LEFT DSIDE WEAKNESS NOTED IN TURNING. COVID CAME BACK NEGATIVE, HAS ORDER TO TRANSFER TO 218. REPORT GIVEN TO BARBRA. CONT PLAN OF CARE. REMAINS ON BEDREST.TRANSFERED AT 0130.
--- NOTE | 2019-08-10 03:22 | NUR ---
RECEIVED RESULTS OF COVID- TEST AND HE WAS NEGATIVE, THIS IS HIS 2ND RESULTS OF NEGATIVE. TIRE REGROOVING MACHINE OPERATOR NOTIFIED AND ANGELA MARINO NOTIFIED. OK TO [facility] OFF FLOOR.THIS WAS ABOUT 1999 AND 2009 ON 08/09/19.
[2019-08-10 04:45] VITALS: BP 148/73
--- NOTE | 2019-08-10 04:46 | NUR ---
ASSUMED PT CARE AROUND 0125, PT TRANSFERED FROM ANOTHER UNIT. ORIENTED TO SELF ONLY. PLEASANTLY CONFUSED. DENIES ANY PAIN. PT HAS BEEN SLEEPING MOST OF THE MORNING. RESP EVEN AND UNLABORED. FALL PRECAUTIONS IN PLACE. PROGRESSING SLOWLY TOWARD POC GOALS. WILL CONTIUE TO MONITOR FURTHER.
[2019-08-10 11:24] LABS: HEMATOCRIT 46.5 % (42.0-52.0); HEMOGLOBIN 15.3 gm/dL (14.0-18.0); MCH 29.9 pg (26.0-34.0); MCHC 32.9 g/dL (28.0-37.0); MCV 90.9 fL (80.0-100.0); RBC 5.11 mil/uL (4.50-6.00); RDW 13.9 % (10.5-14.5)
[2019-08-10 12:00] VITALS: BP 175/99
--- NOTE | 2019-08-10 12:20 | NUR ---
FAXED CLINICAL UPDATE TO [facility]UL[facility]JICA SPOKE WITH JACK NAVA SHE RECEIVED UPDATE.
--- NOTE | 2019-08-10 14:00 | NUR ---
5N to [place]. SP with konrad Stack planner chief to fax updated information to Sreekanth Ayers.
--- NOTE | 2019-08-10 14:27 | NUR ---
FINN reviewed chart and spoke with nursing and attending physician. Pt's repeat COVID-19 test was negative. Pt was transferred to from 3W yesterday. Neuro consulted. MRI completed today. 5N consult completed. 5N is able to accept pt when medically stable. FINN spoke with pt's DPOA, Kristopher Prieto, via phone to provide update and discuss 5N's acceptance. Kristopher is aware and agreeable with discharge plan. tool planner faxed updates to [facility] Danielle Ayers for review. FINN is following to assist as needed with discharge planning.
[2019-08-10 16:00] VITALS: BP 138/83
--- NOTE | 2019-08-10 16:04 | NUR ---
ASSESSMENT CHARTED. PT ALERT AND ORIENTED X2 WITH FORGETFULNESS. PLEASANT AND COOPERATIVE WITH CARES. UP IN THE CHAIR THIS SHIFT. IV ABX GIVEN ORDERED. PROGRESSING SLOWLY TOWARDS DISCHARGE GOAL. WILL CONTINUE TO MONITOR.
[2019-08-10 20:30] VITALS: BP 147/91
[2019-08-11 04:50] VITALS: BP 113/63
--- NOTE | 2019-08-11 05:26 | NUR ---
PT A&O X2 AT HS. ORIENTED TO SELF & PLACE ONLY. HX OF DEMENTIA. ABLE TO MAKE SOME VERY BASIC NEEDS KNOWN. INCONT OF B&B. NON PRODUCTIVE COUGH. DENIES PAIN. NO NEW ACUTE FINDINGS OVERNIGHT
[2019-08-11 05:59] LABS: BASOPHILS 0.2 % (0.0-2.0); EOSINOPHILS 0.9 % (0.0-3.0); HEMATOCRIT 39.3 % (42.0-52.0); LYMPHOCYTES 6.6 % (24.0-44.0); MCH 29.7 pg (26.0-34.0); MCHC 33.1 g/dL (28.0-37.0); MCV 89.9 fL (80.0-100.0); MONOCYTES 7.8 % (1.0-8.0); PLATELET COUNT 187 thou/uL (150-400); POLYS 84.5 % (36.0-66.0); RBC 4.37 mil/uL (4.50-6.00); WBC 13.1 thou/uL (4.0-11.0)
[2019-08-11 06:11] LABS: CALCIUM 7.9 mg/dL (8.5-10.1); CREATININE 1.1 mg/dL (0.7-1.3); MAGNESIUM 1.9 mg/dL (1.8-2.4); POTASSIUM 3.4 mmol/L (3.5-5.1)
[2019-08-11 08:41] VITALS: BP 133/78
[2019-08-11 12:38] VITALS: BP 127/86
--- NOTE | 2019-08-11 15:08 | NUR ---
ASSESSMENT CHARTED. PT ALERT AND ORIENTED X2 WITH FORGETFULNESS. VSS. DENIED HAVING PAIN OR DISCOMFORT. UP IN THE CHAIR THIS SHIFT. NO RESPIRATORY OR CARDIAC DISTRESS NOTED. PROGRESSING WELL TOWARDS DISCHARGE GOAL. WILL CONTINUE TO MONITOR.
--- NOTE | 2019-08-11 16:47 | NUR ---
tenative plan for transfer to tomorrow notified son Prieto
[2019-08-11 16:56] VITALS: BP 139/82
[2019-08-11 19:30] VITALS: BP 152/94
--- NOTE | 2019-08-12 00:21 | NUR ---
ASSUMMED CARE OF PT @1900 PT ASSESSED AT START OF SHIFT A&0 X3 FORGETFUL. IV INTACT AND ABX STARTED. PT ON ROOM AIR AND HAS A NON PRODUCTIVE COUGH. INCONTINENT OF BLADDER. FALL PREC IN PLACE. EVENING MEDS GIVEN AND THIS NURSE SPOKE WITH SILVIANO DUMONT OVER THE PHONE. WILL CONT WITH POC TILL EOS
[2019-08-12 03:05] VITALS: BP 135/65
[2019-08-12 07:32] VITALS: BP 144/73
[2019-08-12] MEDS ORDERED: AUGMENTIN 875-1 EACH PO (11:25)
[2019-08-12] MEDS ORDERED: B-12500 MCG PO (11:25)
--- NOTE | 2019-08-12 13:31 | NUR ---
CARE TEAM INDICATED THAT PT IS MEDICALLY STABLE TO DISCHARGE TO 5N ACUTE INPATIENT REHAB THIS DAY. PT AND HIS DPOA TIM ARE AWARE AND AGREEABLE. TIM PROVIDED PT'S SPOUSE'S PHONE NUMBER FOR HIM TO REACH HER. CM PROVIDED IT TO NURSE TO GIVE TO PT BRINA . PLAN IS THAT PT WILL BE ABLE TO REHAB BACK TO ASSISTED LIVING WITH . REPORT TO BE CALLED TO . NO OTHER CM INTERVENTION INDICATED. CASE CLOSED.
[2019-08-12 15:48] VITALS: BP 156/82
--- NOTE | 2019-08-12 16:20 | NUR ---
DISCUSSED DC TO 5N-REHAB, VERBALIZED UNDERSTANDING. OOB TO CHAIR ALL DAY, CAN BE UNSTEADY ON FEET. REMAINED ALERT AND ORIENTED X 2-3, PLEASANT, AND COOPERATIVE. LEFT UNIT IN WHEELCHAIR, AND WITH ALL PERSONAL BELONGINGS.
== END 2019-08-12 17:01 | DRG 91 ==
LOC: ER 13:33 → 3W 16:29 → 2N 16:29 → EROBS 16:29 → 3W 18:32 → 2N 08-10 01:40 → 3W 08-10 01:56 → 2N 08-10 01:58 → 4S 08-11 18:21
PROVIDERS: Internal Medicine; Psychiatry & Neurology Neurology; Student in an Organized Health Care Education/Training Program; ADMIT Hospitalist
DX: G92 Toxic encephalopathy (principal); J18.9 Pneumonia, unspecified organism; N17.9 Acute kidney failure, unspecified; I48.20 Chronic atrial fibrillation, unspecified; I50.32 Chronic diastolic (congestive) heart failure; I69.354 Hemiplegia and hemiparesis following cerebral infarction affecting left non-dominant side; F03.90 Unspecified dementia, unspecified severity, without behavioral disturbance, psychotic disturbance, mood disturbance, and anxiety; E78.5 Hyperlipidemia, unspecified; F32.9 Major depressive disorder, single episode, unspecified; G47.00 Insomnia, unspecified; I25.10 Atherosclerotic heart disease of native coronary artery without angina pectoris; K21.9 Gastro-esophageal reflux disease without esophagitis; M19.90 Unspecified osteoarthritis, unspecified site; Z96.649 Presence of unspecified artificial hip joint; I11.0 Hypertensive heart disease with heart failure; E55.9 Vitamin D deficiency, unspecified; E53.8 Deficiency of other specified B group vitamins; I08.1 Rheumatic disorders of both mitral and tricuspid valves; Z09 Encounter for follow-up examination after completed treatment for conditions other than malignant neoplasm; Z87.81 Personal history of (healed) traumatic fracture; Z79.82 Long term (current) use of aspirin; Z79.899 Other long term (current) drug therapy; Z79.01 Long term (current) use of anticoagulants; Z95.1 Presence of aortocoronary bypass graft
CPT/HCPCS: 10081; 10102; 10879

== ENCOUNTER 2019-08-12 10:00 | Inpatient (IN) | payer OTHER ==
[~2019-08-12] VITALS: Ht 182.9 cm; Wt 85.7 kg
--- NOTE | ~2019-08-12 | H ---
[facility] [place] [address] HISTORY AND PHYSICAL Name: DIAZ MARIN Room #: 515-P ADM IN M.R.#: [id number] Admission: 08/12/19 Attend Phys: Jovanni Aguayo MD Discharge: Date of : 36 Report #: [id number] THIS REPORT FOR: cc: [facility] - Family physician unknown [facility] - Family physician unknown Jovanni Aguayo MD ~ CC: Jovanni TONY unknown DATE OF SERVICE: 08/13/2019 HISTORY AND PHYSICAL/POST-ADMISSION PHYSICIAN EVALUATION HISTORY OF PRESENT ILLNESS: The patient is an 84-year-old white male originally admitted to [facility] with left-sided weakness and concern for a CVA. He was seen by Neurology. MRI of the brain was negative for acute process. Workup for vasculitis and elevated CRP and white blood cell count is increasing. He was found on chest x-ray to have a right-sided pneumonia, started on antibiotics. His white blood count was trending back down, mentation improving. He was noted to have an encephalopathy superimposed on top of vascular dementia. Left-sided weakness was improved. He has a history of prior CVA with premorbid left-sided weakness. He was noted to have a metabolic encephalopathy along with late effect cerebrovascular accident. He has been admitted for acute in-hospital inpatient rehabilitation. PRIOR MEDICAL HISTORY, ALLERGIES, AND SOCIAL HISTORY: Please see the history and physical documentation. MEDICATIONS: Please see the full MAR. REVIEW OF SYSTEMS: No specific complaints of chest pain, shortness of breath or abdominal discomfort. PHYSICAL EXAMINATION: GENERAL: The patient is an 84-year-old white male, in no obvious distress. He is pleasant, but is a limited historian. VITAL SIGNS: Last recorded temperature 36.8, pulse 74, respirations 18, blood pressure 151/86. NEUROLOGIC: Facies appeared symmetric. He follows basic 1 step commands. Definite latency to his responses. HEENT: Otherwise appeared benign CHEST: Sounded clear to auscultation. CARDIOVASCULAR: Regular rate and rhythm. ABDOMEN: Bowel sounds positive, nontender. GENITOURINARY AND RECTAL: Deferred. EXTREMITIES: He has functional range of motion of both upper extremities. [facility] [address] [place] [address] HISTORY AND PHYSICAL Name: DIAZ MARIN Room #: 515-P ADM IN M.R.#: [id number] Admission: 08/12/19 Attend Phys: Jovanni Aguayo MD Discharge: Date of : 36 Report #: [id number] Strength is grade 4- to 3+/5. DTRs are trace to 1. Lower extremities, no focal calf swelling, functional range of motion, strength is grade 3+ to 4-/5. He is needing mod assist for sit to stand. ASSESSMENT: An 84-year-old white male with the following problem list: 1. Metabolic encephalopathy. 2. 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 3. Pneumonia. 4. Dysphagia. The patient is on mechanical soft with thin liquids. 5. Hypertension. 6. Hyperlipidemia. 7. Coronary artery disease, status post coronary artery bypass grafting. 8. Atrial fibrillation. 9. Vascular dementia. 10. History of left femur fracture. 11. History of falls. PLAN: The patient is admitted for acute in-hospital inpatient rehabilitation. From a postadmission physician evaluation perspective, there are no relevant changes since the preadmission screening. Please see the above review of prior and current medical and functional conditions and comorbidities. Please see the patient's previous and current functional status. As far as risk of complications, the patient has multiple medical comorbidities as noted above. Initial plan of care involves the interdisciplinary acute inpatient rehabilitation program. Measurable functional goals would be for the patient to become modified independent with transfers, mobility and ADLs, so that he can hopefully return back to his prior living situation. Prognosis is reasonably good with estimated length of stay probably at least 7-14 days. Potential barriers would include the patient's functional mobility and ADL deficits as well as cognitive concerns. The patient meets diagnostic criteria for an acute in-hospital inpatient rehabilitation stay. He meets the medical necessity criteria. He does have the tolerance for therapies and has appropriate discharge goals back to the home setting. ADDENDUM: The overall plan of care is based on the preadmission screen, post-admission physician evaluation, and information garnered from therapy assessments. 1. Estimated length of stay is probably at least 7-14 days. 2. Medical prognosis is fair to good. 3. Anticipated functional outcomes would be for the patient to improve as far as gait and mobility as well as ADL independence and cognition. He had utilized a front-wheeled walker for a few steps prior to admission, otherwise was using a wheelchair for long distances. He currently is mod assist with sit to stand transfers and mod assist to ambulate short distances with a front-wheeled [address] [address] HISTORY AND PHYSICAL Name: DIAZ MARIN Room #: 515-P [facility] IN M.R.#: [id number] Admission: 08/12/19 Attend Phys: Jovanni Aguayo MD Discharge: Date of : 36 Report #: [id number] walker. Lower body dressing is max assist, upper body is min assist. In speech therapy, he is on a regular thin liquid diet. 4. Discharge destination would be for him to return back to the home setting as noted above. 5. Expected therapy by discipline includes PT, OT and speech 1 hour per day each five days a week throughout the duration of the acute inpatient rehabilitation stay. Overall plan of care dictated regarding the patient. By: [id number] Jovanni Aguayo MD /nt
--- NOTE | ~2019-08-12 | HC ---
[facility] [address] CONSULTATION Name: DIAZ MARIN Room #: 515-P [facility] IN M.R.#: [id number] Admission: 08/12/19 Attend Phys: Jovanni Aguayo MD Discharge: 08/27/19 Date of : 36 Report #: [id number] THIS REPORT FOR: cc: [facility] - Family physician unknown [facility] - Family physician unknown Alvaro Olivia PhD ~ CC: Jovanni TONY unknown DATE OF SERVICE: 08/25/2019 NEUROBEHAVIORAL STATUS EXAM ATTENDING PHYSICIAN: Jovanni Aguayo MD CONSULTING PHYSICIAN: Alvaro Olivia, PhD CLINICAL PRESENTATION: The patient is an 84-year-old male originally admitted to the [facility] with left hemiparesis and a concern for CVA. He had an MRI of the brain that was negative for an acute process. 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 The patient was noted to have an encephalopathy superimposed on a vascular dementia. The assessment on the rehabilitation unit was a metabolic encephalopathy, late effect CVA with left-sided residual, pneumonia, dysphagia, the patient was on mechanical soft with thin liquids, hypertension, hyperlipidemia, coronary artery disease, status post coronary artery bypass grafting, atrial fibrillation, vascular dementia, history of left femur fracture and a history of falls. A complete description of his medical condition and history can be found in his medical record. Neuropsychological consultation was requested to provide assistance in the assessment of cognitive and emotional status and provide recommendations and services. Prior to this most recent admission, the patient was living with his . He is a college graduate. 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 It should be noted that the patient is an unreliable historian and presented with decreased word finding and intermittent disorientation during the assessment. TECHNIQUES UTILIZED: Clinical interview, review of medical records, staff consultation and behavioral observation, mini mental status exam to standard version, clock drawing and brief verbal fluency assessment. EXAMINATION FINDINGS: The patient was alert and cooperative with the assessment. However, he did present with variability and orientation. He presents with severe difficulty with verbal fluency. He indicated that he had 2 [facility] [address] [place] [address] CONSULTATION Name: DIAZ MARIN Room #: 515-P [facility] IN M.R.#: [id number] Admission: 08/12/19 Attend Phys: Jovanni Aguayo MD Discharge: 08/27/19 Date of : 36 Report #: [id number] living children and 1 daughter that at age 29. Difficulty with memory, attention/concentration and anxiety is reported. He does not report difficulty with sleep or appetite. Performance on the MMSE 2 brief version was extremely low with a raw score of 5/16. He was 2/3 for initial registration, 1/5 for orientation to time, 2/[address] and 0/3 for immediate recall of 3 items after a brief time delay and distraction. Performance improved on the MMSE 2 standard version to a raw score of 18/30, which was a T score of 12 and percentile rank of less than 1. He was 5/5 for serial sevens, 2/2 for naming, 1/1 for repetition, 3/3 for comprehension. He could read and follow single command. The patient was unable to write a sentence. He was able to copy a simple geometric design. The patient was unable to draw a clock. He was unable to place the numbers within the clock or set the hands at a designated time. Category fluency was extremely low with a raw score of 4 for animal fluency. The patient is presenting with variability in orientation and severe deficits in memory, attention/memory and executive functioning. DIAGNOSTIC IMPRESSION: 1. 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 RECOMMENDATIONS: The patient will require assistance in the management of medication, finances and nutrition. Treatment program for neurocognitive disorder including medication and behavioral strategies that would assist in compensation for cognitive deficits. His functioning may improve when he returns to more familiar environment. However, 24-hour care is likely to be necessary to maintain safety. Thank you very much for allowing me to provide the consultation on this patient. By: [id number] Alvaro Olivia, PhD /nt
[~2019-08-12 10:00] MED LIST changes: +LOPERAMIDE2 MG PO; +SUPER THERAVIT1 EACH PO
[2019-08-12] MEDS ORDERED: B-12500 MCG PO (11:25)
[2019-08-12] MEDS ORDERED: AUGMENTIN 875-1 EACH PO (11:25)
--- NOTE | 2019-08-12 15:37 | NUR ---
chart review. unable to visit with basil via phone call. will cont following as needed for dc needs, and team meeting. pt supposed to admit to acute 5n rehab this afternoon. noted in chart pt lives with spouse at [facility]. he has become weaker. had walker in past and a wheel chair. has shower chair. pt is able to get meals in intermediate and medication assistance if needed. another contact per chart iftikhar. will cont following as needed for dc needs. sixto liaison with [place] will cont following as needed for dc needs.
--- NOTE | 2019-08-12 18:38 | NUR ---
PATIENT ARRIVED ON UNIT AROUND 1600, PT A&O TO PERSON AND PLACE, NO ACUTE DISTRESS DURING SHIFT. VSS, O2 ON RA. PT DENIES ANY PAIN, BUT EMOTIONAL DUE TO BEING AWAY FROM . ADMISSION ASSESSMENT COMPLETED, SKIN ASSESSMENT DONE, NO WOUNDS, OR SKIN BREAKDOWN NOTED. PT HAS 2 IV'S, LFA SALINE LOCK FLUSHES WELL, AND HESHAM SALINE LOCK, FLUSHES WELL. CLEAR LUNG SOUNDS, RADIAL AND PEDAL PULSES NORMAL +2. PT ATE MOST OF DINNER, APPETITE ADEQUATE. BED IN LOWEST POSITION, CALL LIGHT WITHIN REACH, WILL CONTINUE TO MONITOR PER POC.
[2019-08-12 20:00] VITALS: BP 174/98
[2019-08-12 22:30] VITALS: BP 133/85
--- NOTE | 2019-08-13 01:26 | NUR ---
PT ASSESSMENT COMPLETED AND VSS. MEDS GIVEN ORDERED AND WELL TOLERATED. FALL PRECUATIONS IN PLACE. IMPULSIVE/CONFUSED/PLEASANT. INC OF LARGE AMOUNTS OF URINE. SABAS CARE PROVIDED. ASST WITH REPOSITION FOR COMFORT USING PILLOWS. SLEEPING WELL. WILL CONTINUE TO MONITOR FREQUENTLY.
[2019-08-13 08:58] LABS: HEMATOCRIT 40.8 % (42.0-52.0); HEMOGLOBIN 13.5 gm/dL (14.0-18.0); MCH 29.6 pg (26.0-34.0); MCHC 33.1 g/dL (28.0-37.0); MCV 89.5 fL (80.0-100.0); RBC 4.57 mil/uL (4.50-6.00); RDW 13.7 % (10.5-14.5); WBC 7.4 thou/uL (4.0-11.0)
[2019-08-13 09:00] VITALS: BP 151/86
[2019-08-13 09:14] LABS: CREATININE 0.9 mg/dL (0.7-1.3); POTASSIUM 3.1 mmol/L (3.5-5.1)
--- NOTE | 2019-08-13 12:54 | NUR ---
Nutrition: Pt admit to rehab unit with toxic metabolic encephalopathy and seen per consult related to Poor po intake. ST following for mild dysphagia and currently on mechanically altered chopped diet. Hx dementia. Stable weights. po intake 70-100% past 3 days. Pt did not provide any food preferences or have any questions for RD. Due to observed good intake, stable weights and no additional nutrition intervention at present, consider pt low nutrition risk.
--- NOTE | 2019-08-13 19:34 | NUR ---
ASSUMED CARE OF PT AT 0700. PT IS A&OX2, VITAL SIGNS ARE STABLE. PT DENIES PAIN AND PARTICIPATED IN SCHEDULED THERAPIES. PT INCONTINENT, IMPULSIVE AND WANDERS THE UNIT IN W/C. DOORS TO UNIT CLOSED WHEN PT UP FOR SAFETY. HR IRREGULAR, DISCUSSED WITH BIKE TECHNICIAN DURING ROUNDS. RASH TO BACK WITH REPORTED ITCHING THIS EVENING, BIKE TECHNICIAN NOTIFIED AND ORDERS OBTAINED AND AWAITING ARRIVAL TO UNIT FROM PHARMACY, ONCOMING NURSE INFORMED OF RASH AND MEDICAITONS. FALL PRECAUTIONS IN PLACE AND NURSING WILL CONTINUE TO MONITOR.
[2019-08-13 19:44] VITALS: BP 157/100
--- NOTE | 2019-08-14 04:20 | NUR ---
ASSUMED CARE AT APPROX 1900 EVENING 08/12. PT C/O ITCHING RASH TO BACK, CREAM APPLIED ORDERED. PT REPORTED RELEIF WITH ITCHING. PT INCONTINENT OF URINE ASSISTED WITH CHANGING OF BRIEF AND INTO GOWN. PT TOOK HS MEDS WITH WATER TOLERATING WELL. PT APPEARS TO BE SLEEPING SOUNDLY WITH HOURLY ROUNDING CHECKS. BED ALARM ON AND CALL LIGHT IN REACH. WILL CONTINUE TO MONITOR.
[2019-08-14 08:00] VITALS: BP 147/95
--- NOTE | 2019-08-14 11:37 | NUR ---
ASSUMED CARE AT 0700. PATIENT IS ALERT AND ORIENTED 1-2, BUT VERY FORGETFUL. PATIENT NOGUERA'S, CAR SHAKEOUT OPERATOR ARE EQUAL. LUNGS ARE CLEAR AND DEMINISHED. ABD IS SOFT WITH BSX4. PATIENT HAS RASH TO HIS BACK. SCED MED APPLIED. PATIENT CONTINUES ON ORAL ABT WITHOUT ADDVERSE AFFECTS. K+ LEVEL 3.1. DR. BARNES NOTIFIED. PATIENT HAS 2 S.L. ONE IN THE RIGHT AC. AND THE LEFT FORARM. UP IN W/C FOR MEALS. FALL AND SAFETY PROTOCOLS IN PLACE. DENIES ANY PAIN AT THIS TIME. WILL CONTINUE TO MONITER.
--- NOTE | 2019-08-14 15:15 | NUR ---
DR. BARNES NOTIFIED OF A.M. LAB RESULTS. NO NEW ORDERS RECIEVED. DR. BARNES TO REVIEW A.M. LABS. PATIENT GIVEN 2 OJ'S WITH AM MEDS AND ENCOURAGED TO INCREASE HIS MILK INTAKE.
[2019-08-14 20:45] VITALS: BP 156/102
--- NOTE | 2019-08-15 01:37 | NUR ---
ASSUMED CARE AT APPROX 1900 EVENING 08/13. PT PLEASANTLY CONFUSED ON THIS SHIFT. PT INCONTINENT OF URINE REQUIRING ASSISTANCE WITH BED CHANGE. PT TOOK HS MEDS WITH WATER AND APPLESAUCE TOLERATING WELL.PT APPEARS TO BE SLEEPING SOUNDLY AT PRESENT. BED ALARM ON AND CALL LIGHT IN REACH. WILL CONTINUE TO MONITOR.
[2019-08-15 08:32] VITALS: BP 142/82
--- NOTE | 2019-08-15 17:04 | NUR ---
ASSUMED CARE AT 0700, PT A&O X 2, CONFUSED AND INPULSIVE AT TIMES. VSS, O2 ON RA. PT DENIES ANY PAIN OR DISCOMFORT DURINGS SHIFT. MEDS GIVEN PER ORDERS. PT WAS ABLE TO SPEAK TO TODAY WHICH LIFED HIS MOOD. INCONTINENT OF B&B, LARGE LOOSE BM TODAY, USES URINAL AT TIMES. RESTING IN BED, CALL LIGHT WITHIN REACH, WILL CONTINUE TO MONITOR PER POC.
[2019-08-15 19:30] VITALS: BP 137/92
--- NOTE | 2019-08-15 23:39 | NUR ---
PT ASSESSMENT COMPLETED AND VSS. MEDS GIVEN ORDERED AND WELL TOLERATED. FALL PRECAUTIONS IN PLACE. INC OF LARGE AMOUNT OF YELLOW URINE. ASST WITH REPOSITION FOR COMFORT. SLEEPING WELL. SAT WNL ON RA. DENIES NEEDS. WILL CONTINUE TO MONITOR FREQUENTLY. IMPULSIVE AT TIMES. REMAINS ORIENTED X 2.
[2019-08-16 07:15] VITALS: BP 136/83
--- NOTE | 2019-08-16 19:32 | NUR ---
ASSUMED CARE OF PT AT 0700. PT IS A&OX2 VITAL SIGNS ARE STABLE. PT HAD NO IMPULSIVE EPISODES THIS SHIFT AND IS CALLING APPROPRIATLEY FOR ASSISTANCE. PARTICIPATED IN SCHEDULED THERAPIES. RASH TO BACK NOTED, PT DENIES ITCHING AT THIS TIME. FALL PRECAUTIONS IN PLACE AND NURSING WILL CONTINUE TO MONITOR.
[2019-08-16 20:36] VITALS: BP 155/76
--- NOTE | 2019-08-17 01:46 | NUR ---
PT ASSESSMENT COMPLETED AND VSS. MEDS GIVEN ORDERED AND WELL TOLERATED. FALL PRECAUTIONS IN PLACE. INC OF LARGE AMOUNTS OF URINE. SABAS CARE PROVIDED. FUNGAL IN GROIN AREA. FUNGAL CREAM APPLIED. ASST WITH REPOSITION FREQUENTLY USING PILLOWS. PT TALKED ABOUT HIS LIFE [employer]. TEARFUL. PT STATES HE MISSES HIS . PROVIDED MUCH EMOTIONAL SUPPORT. SLEEPING WELL. WILL CONTINUE TO MONITOR FREQUENTLY.
[2019-08-17 07:19] LABS: ABSOLUTE NEUTROPHILS 8.8 thou/uL (1.4-8.2); BASOPHILS 0.8 % (0.0-2.0); EOSINOPHILS 3.2 % (0.0-3.0); HEMATOCRIT 46.6 % (42.0-52.0); HEMOGLOBIN 15.8 gm/dL (14.0-18.0); LYMPHOCYTES 7.8 % (24.0-44.0); MCH 30.3 pg (26.0-34.0); MONOCYTES 8.1 % (1.0-8.0); PLATELET COUNT 320 thou/uL (150-400); POLYS 80.1 % (36.0-66.0); RBC 5.23 mil/uL (4.50-6.00); RDW 13.8 % (10.5-14.5)
[2019-08-17 07:32] LABS: CALCIUM 8.8 mg/dL (8.5-10.1); CREATININE 1.1 mg/dL (0.7-1.3); MAGNESIUM 2.3 mg/dL (1.8-2.4); POTASSIUM 3.7 mmol/L (3.5-5.1)
[2019-08-17 07:35] VITALS: BP 144/76
--- NOTE | 2019-08-17 12:25 | NUR ---
team meeting, recommendation: liaison with jenny VIRAMONTES is requesting update 08/26 with increased assistance and home health : pills and bills. mech soft diet, bath aid and dressing. hopeful with cont rehab he is cont to improvement with therapy.
[2019-08-17 19:45] VITALS: BP 150/78
--- NOTE | 2019-08-17 20:21 | NUR ---
ASSUMED CARE OF PT AT 0700. PT IS A&OX2 AND VITAL SIGNS ARE STABLE. PT DENIES PAIN. RASH TO BACK NOTED ON ASSESSMENT AND APEARS TO HAVE IMPROVED FROM PREVIOUS ASSESSMENT, PT DENIES IRRIATATION. PT CALLS APPROPRIATELY. FALL PRECAUTIONS IN PLACE AND NURSING WILL CONTINUE TO MONITOR.
--- NOTE | 2019-08-18 03:58 | NUR ---
RASH NOT BOTHERING PATIENT TONIGHT. STATED FEELING "LOST" AT BEGINNING OF SHIFT. ENCOURAGED TO SLEEP WELL OVERNIGHT IN ORDER TO BE WELL RESTED FOR THERAPY, FEELING GOOD ABOUT THAT HE TOLERATED MEDS WHOLE WITH APPLESAUCE WHICH HE SWALLOWED WITHOUT CHEWING. TURNING SELF TO SIDE TWICE TONIGHT.
[2019-08-18 08:11] VITALS: BP 145/76
--- NOTE | 2019-08-18 10:10 | NUR ---
FAXED CLINICAL UPDATE TO [facility] RECEIVED CONFIRMATION AND LEFT MSG WITH JACK IN ADM ANTICIPATE DC 08/26.
--- NOTE | 2019-08-18 11:12 | NUR ---
FAXED CLINICAL UPDATE TO [facility] SPOKE WITH JACK NAVA SHE RECEIVED UPDATE AND WOULD BE ABLE TO PROVIDE [facility] SOFT DIET AT AL. DP TO FOLLOW.
--- NOTE | 2019-08-18 16:41 | NUR ---
ASSUMED CARE OF PT AT 0700. PT IS A&OX4 AND VITAL SIGNS ARE STABLE. PT DENIES PAIN AND PARTICIPATED IN SCHEDULED THERAPIES. RASH TO BACK IMPROVING, MEDICATED OINTMENT APPLIED PER ORDERS. CALLS APPROPRIATELY. CALLED THIS AFTERNOON ON PHONE. FALL PRECAUTIONS IN PLACE AND NURSING WILL CONTINUE TO MONITOR.
[2019-08-18 20:00] VITALS: BP 127/76
--- NOTE | 2019-08-19 03:37 | NUR ---
ASSUMED CARE OF PT AT 1900HRS. FALL PRECAUTION IN PLACE. PT TOOK MEDS WHOLE WITH APPLESAUSE. PT IS INCT. PT DENIED PAIN, NAUSEA OR SOA. PT WAS ABLE TO GET COMFORTABLE AND SLEEP PART OF THE SHIFT. VSS AND NO S/S OF ACUTE DISTRESS. WILL CONTINUE TO MONITOR.
[2019-08-19 08:00] VITALS: BP 158/103; BP 158/109
[2019-08-19 10:30] VITALS: BP 84/68
--- NOTE | 2019-08-19 13:27 | NUR ---
aurelia returned phone call to mando dhaliwal, education on dcp. agreed with dcp. jenny already helps him with medication, bathing and dressing. he is in memory care [facility]. would like with speak with jenny liaison. aurelia passed on information to sixto to call isra. will cont following as needed for dc needs.
--- NOTE | 2019-08-19 15:17 | NUR ---
ASSUMED CARES AT 0700. PT ORIENTED TO PERSON ONLY, CONFUSED AND FORGETFUL. DENIES PAIN AT THIS TIME. BP ELEVATED THIS AM, BP LOWERING MEDS ADMINISTERED, HOSPITALIST AWARE. FUNGAL CREAM APPLIED TO SCROTUM FOR REDNESS. CORTISONE CREAM APPLIED TO RASH ON BACK. REMAINS INCONTINENT OF BLADDER. UP WITH 1 MIN ASSIST, GB AND WALKER AND TOLERATED WELL. Q1H VISUAL CHECKS. CALL LIGHT WITHIN REACH. FALL PRECAUTIONS IN PLACE
[2019-08-19 15:24] VITALS: BP 134/87
[2019-08-19 19:33] VITALS: BP 151/81
[2019-08-20] VITALS: BP 156/97
--- NOTE | 2019-08-20 03:34 | NUR ---
TURNING SELF FREQUENTLY WHILE AWAKE AND WITH MIN ASSIST SINCE. INCONTINENT AT THIS TIME. HC CREAM APPLIED TO RASH ON BACK, A FEW AREAS ARE RAISED, BUT ALL ARE LESS REDDENED THAN A FEW DAYS AGO. TOLERATING PILLS WHOLE IN APPLESAUCE, BUT ONLY HAD 3 SMALL PILLS SCHEDULED AT HS. OCCASSIONAL COUGH DURING THE NIGHT
[2019-08-20 08:00] VITALS: BP 127/52
--- NOTE | 2019-08-20 13:02 | NUR ---
Nutrition followup: Pt continues to eat 75-100% of meals on mechanically altered chopped diet. 08/17 weight 190# with prior weights ~205#. Suspect error. Pt has been in positive fluid balance and eating well. Will request Re-weigh. 08/18 BM. On vitamin D and daily MVI. Follow weight trends but continue as low nutrition risk.
--- NOTE | 2019-08-20 14:37 | NUR ---
ASSUMED CARES AT 0700. PT AWAKE, ORIENTED TO PERSON ONLY, FORGETFUL. DENIES PAIN. HR LOW RANGING 38-64 (TAKEN MANUALLY MULTIPLE TIMES). ALL OTHER VITALS STABLE. CONTINUES TO HAVE A RASH ON HIS BACK, CORTISONE CREAM APPLIED. ANTI-FUNGAL CREAM APPLIED TO AROUND THE SCROTUM WITH EVERY SABAS CARE. PT REMAINS INCONTINENT OF BOWEL AND BLADDER. UP WITH 1 MIN ASSIST, GB AND WALKER AND TOLERATED WELL. Q1H VISUAL CHECKS. CALL LIGHT WITHIN REACH. FALL PRECAUTIONS IN PLACE
[2019-08-20 20:27] VITALS: BP 155/92
--- NOTE | 2019-08-21 02:00 | NUR ---
INCONTINENT OF URINE, CREAMS TO SCROTUM AND BACK AFTER SABAS-CARE. PATIENT TURNING SELF FREQUENTLY WITHOUT FULLY WAKING UP.
[2019-08-21 08:30] VITALS: BP 103/74
--- NOTE | 2019-08-21 14:24 | NUR ---
ASSUMED CARES AT 0700. PT ORIENTED TO SELF ONLY. CONFUSED AND FORGETFUL. THIS AM PT GOT TEARY AFTER BEING REMINDED THAT HE WAS IN THE HOSPITAL. HE STATED THAT HE'D HAD A DREAM, AND FELT VERY TERRIBLE. STAFF LISTENED TO HIS CONCERNS AND REASSURED HIM OF HIS SAFETY AND DISCUSSED DC PLANS WITH HIM. PT WAS CONCERNED ABOUT THE WELL-BEING OF HIS AND WAS ABLE TO CONTACT HER VIA PHONE AND SHE REASSURED HIM SHE WAS DOING OKAY. PT SLEEPY IN BETWEEN THERAPIES. UP IN THE DINING AREA FOR ALL MEALS. UP WITH 1 MOD ASSIST, GB AND WALKER AND TOLERATED WELL. FREQ VISUAL CHECKS. CALL LIGHT WITHIN REACH. FALL PRECAUTIONS IN PLACE
[2019-08-21 19:23] VITALS: BP 152/88
--- NOTE | 2019-08-22 02:04 | NUR ---
assumed care at approx 1900 evening 08/20. pt in bed sleeping at change of shift. pt awoke to take hs meds with applesauce tolerating well. pt appears to be sleeping soundly with hourly rounding checks. bed alarm on and call light in reach. will continue to monitor.
[2019-08-22 08:00] VITALS: BP 145/89
--- NOTE | 2019-08-22 11:07 | NUR ---
ASSUMED CARE AROUND 0700, PT A&O X 2, CONFUSED AT TIMES, NO ACUTE DISTRESS NOTED. VSS, O2 ON RA. PT DENIES ANY PAIN OR DISCOMFORT, ATE BREAKFAST IN DINING ROOM, MEDS GIVEN WHOLE WITH APPLESAUCE, TOLERATED WELL. INCONTINENT OF B&B AT TIMES, LAS BM 08/21/19. ALSO USES URINAL. RESTING IN BED, CALL LIGHT WITHIN REACH, WILL CONTINUE TO MONITOR PER POC.
[2019-08-22 19:31] VITALS: BP 128/86
--- NOTE | 2019-08-23 04:19 | NUR ---
assumed care at approx 1900 evening 08/21. pt awake at change of shift sometimes dozing off and on. pt pleasant and cooperative and forgetful. pt took hs meds with applesauce tolerating well. pt incontinent of urine assisted with pad and linen change. pt appears to be sleeping soundly with hourly rounding. bed alarm on and call light in reach. will continue to monitor.
[2019-08-23 08:29] VITALS: BP 108/79
--- NOTE | 2019-08-23 19:22 | NUR ---
ASSUMED CARE OF PT AT 0700. PT IS A&OX2 AND VITAL SIGNS ARE STABLE. PT DENIES PAIN AND PARTICIPATED IN SCHEUDULED THERAPIES. RASH TO BACK TREATED WITH ORDERED MEDICATED CREAM. NO IV IN PLACE. FALL PRECATIONS IN PLACE, CALLS APPRORPIATELY FOR ASSISTANCE, NURSING WILL CONTINUE TO MONITOR.
[2019-08-23 20:00] VITALS: BP 149/83
--- NOTE | 2019-08-24 03:51 | NUR ---
ASSUMED CARE AROUND 1900, PT A&O X 3, CONFUSED AT TIMES. NO ACUTE CHANGES OVERNIGHT. VSS, O2 ON RA. PT DENIED ANY PAIN OR DISCOMFORT DURING SHIFT. MEDS GIVEN PER ORDERS IN APPLESAUCE, TOLERATED WELL. INCONTINENT AT TIMES, USES URINAL. LAST BM 08/21/19. PT SLEPT THROUGHOUT MOST OF SHIFT, CALL LIGHT WITHIN REACH, WILL CONTINUE TO MONITOR PER POC.
[2019-08-24 07:45] VITALS: BP 152/72
--- NOTE | 2019-08-24 11:12 | NUR ---
vendor form given to bedside nurse and to be placed on pt chart.
[2019-08-24 12:42] VITALS: BP 115/65
--- NOTE | 2019-08-24 16:52 | NUR ---
FAXED REFERRAL TO [facility] RECEIVED CONFIRMATION AND WILL F/U WITH [facility]ULIAN IN THE AM.
[2019-08-24 19:40] VITALS: BP 133/67
--- NOTE | 2019-08-24 21:07 | NUR ---
ASSUMED CARE OF PT AT 0700. PT IS A&OX2 AND VITAL SIGNS ARE STABLE. PT DENIES PAIN. AT APPROXIMATELY 1200 PT WAS AT DINING TABLES AND REPORTED SOB, O2 SAT IN MID 80S AND HR IN 40S, PT ASSISTED TO BED AND PLACED ON 2L O2 VIA NC AND STAT EKG ORDERD. EKG CAPTURED VENTRICULAR AND SUPERVENTRICULAR TRIGEMINY WITH LEFT BUNDLE BRANCH BLOCK AND BORDERLINE PROLONGED IL INTERVAL. BUNG REMOVER NOTIFIED AND CARDIOLOGY CONSULTED. PT DENIES CHEST PAIN, DIZZINESS OR PALPITATIONS, NO LOSS OF CONCONSCIOUSNESS. PT TO REMAIN ON UNIT AND MONITORED BY NURSING STAFF AT THIS TIME. CHANGES TO MEDICAITONS NOTED AND NIGHT NURSE AWARE OF INCIDENT AND CARE PLAN. FALL PRECAUTIONS IN PLACE AND NURSING WILL CONTINUE TO MONITOR.
--- NOTE | 2019-08-25 02:15 | NUR ---
PT ALERT AND ORIENTED X 1. PULSE 77 LAST EVENING. NO SOB NOTED. PT TAKES MEDS IN APPLESAUCE WITHOUT DIFFICULTY. PT DENIES PAIN OR DISCOMFORT. BED ALARM ON FOR SAFETY. PT APPEARS TO BE SLEEPING ON HOURLY ROUNDS.
[2019-08-25 08:00] VITALS: BP 122/77
--- NOTE | 2019-08-25 08:02 | EKG ---
[facility] [place] [address] ELECTROCARDIOGRAM REPORT Name: DIAZ MARIN Room #: 515- ADM IN M.R.#: [id number] Admission: 08/12/19 Attend Phys: Jovanni Aguayo MD Discharge: Date of : 37 Report #: [id number] THIS REPORT FOR: cc: FAM - Family physician unknown FAM - Family physician unknown Isaac Goode MD [facility] ~ THIS REPORT FOR: //name// [facility] Test Date: 2019-08-24 Test Time: 12:23:53 Pat Name: DIAZ MARIN Department: Room: [facility] Gender: M Fluid Designer: Criselda RIDER : 1935 Requested By: Syl Montero Order Number: [id number] MD: Isaac Goode Measurements Intervals [place] Rate: 73 P: 27 NM: 220 QRS: -11 QRSD: 165 T: 192 QT: 463 QTc: 511 Interpretive Statements Sinus rhythm Multiple premature complexes, vent & supraven Prolonged NM interval Left bundle branch block Compared to ECG 08/08/2019 13:49:15 No significant changes Electronically Signed On 08-25-2019 8:00:40 CDT by Isaac Goode [email or web address] <ELECTRONICALLY SIGNED> By: Isaac Goode MD, [facility] 08/25/19 0800 1223 1223 Isaac Goode MD, [facility] /EPI
--- NOTE | 2019-08-25 08:02 | EKG ---
[facility] [place] [address] [address] ELECTROCARDIOGRAM REPORT Name: DIAZ MARIN Room #: 515- ADM IN M.R.#: [id number] Admission: 08/12/19 Attend Phys: Jovanni Aguayo MD Discharge: Date of : 37 Report #: [id number] THIS REPORT FOR: cc: FAM - Family physician unknown FAM - Family physician unknown Isaac Goode MD [facility] ~ THIS REPORT FOR: //name// [facility] Test Date: 2019-08-24 Test Time: 12:15:35 Pat Name: DIAZ MARIN Department: Room: [facility] Gender: M Physical Design Engineer: Criselda RIDER : 1935 Requested By: Zahra Nieves Order Number: [id number] MD: Isaac Goode Measurements Intervals [place] Rate: 76 P: 25 ME: 216 QRS: -6 QRSD: 163 T: 183 QT: 473 QTc: 533 Interpretive Statements Sinus rhythm Frequent premature ventricular complexes prolonged ME interval Left bundle branch block Compared to ECG 08/08/2019 13:49:15 Ventricular premature complex(es) now present Electronically Signed On 08-25-2019 8:00:08 CDT by Isaac Goode [email or web address] <ELECTRONICALLY SIGNED> By: Isaac Goode MD, [facility] 08/25/19 0800 1215 1215 Isaac Goode MD, [facility] /EPI
[2019-08-25 10:15] VITALS: BP 122/77
--- NOTE | 2019-08-25 17:10 | NUR ---
FAXED CLINICAL UPDATE TO [facility] RECEIVED CONFIRMATION AND LEFT MSG WITH JACK NAVA.
--- NOTE | 2019-08-25 19:14 | NUR ---
ASSUMED CARE OF PT AT 0700. PT IS A&OX2 AND VITAL SIGNS ARE STABLE. PT DENIES PAIN AND PARTICIPATED IN SCHEDULED THERAPIES. EKG ORDERD TO BY CARDIO TODAY. RESULTS IN CHART. HR IRREGULAR, NO NOTED BRADYCARDIA EPISODE, SOB, DIZZINESS, NOTED. FALL PRECAUTIONS IN PLACE AND NURSING WILL CONTINUE TO MONITOR. CALLS APPROPRIATELY, FALL PRECAUTIONS IN PLACE AND NURSING WILL CONTINUE TO MONITOR.
[2019-08-25 20:08] VITALS: BP 137/82
--- NOTE | 2019-08-26 00:33 | NUR ---
PT ALERT AND ORIENTED X 1, CONFUSED. PT TOOK HS MEDS IN APPLESAUCE WITHOUT DIFFICULTY. RASH ON BACK. HYDROCORTISONE CREAM APPLIED AT HS. PT DENIES PAIN OR DISCOMFORT. BED ALARM ON FOR SAFETY. PT APPEARS TO BE SLEEPING ON HOURLY ROUNDS.
--- NOTE | 2019-08-26 07:57 | EKG ---
[facility] [place] [address] ELECTROCARDIOGRAM REPORT Name: DIAZ MARIN Room #: 515- ADM IN M.R.#: [id number] Admission: 08/12/19 Attend Phys: Jovanni Aguayo MD Discharge: Date of : 37 Report #: [id number] THIS REPORT FOR: cc: FAM - Family physician unknown FAM - Family physician unknown Isaac Goode MD [facility] THIS REPORT FOR: //name// [facility] Test Date: 2019-08-25 Test Time: 09:02:14 Pat Name: DIAZ MARIN Department: Room: [facility] Gender: M Cemetery Laborer: MYESHA : 1935 Requested By: Nelida Ravi Order Number: [id number] MD: Isaac Goode Measurements Intervals [place] Rate: 79 P: 18 FL: 212 QRS: -7 QRSD: 158 T: 172 QT: 450 QTc: 517 Interpretive Statements Sinus rhythm Borderline prolonged FL interval Left bundle branch block Compared to ECG 08/24/2019 12:23:53 Premature ventricular complexes are no longer present Electronically Signed On 08-26-2019 7:55:36 CDT by Isaac Goode [email or web address] <ELECTRONICALLY SIGNED> By: Isaac Goode MD, [facility] 08/26/19 0755 0902 0902 Isaac Goode MD, [facility] /EPI
[2019-08-26 08:00] VITALS: BP 121/87
--- NOTE | 2019-08-26 09:46 | NUR ---
ASSUMED CARE AT 0700. PATIENT IS ALERT AND ORIENTED TO SELF, AND FORGETFUL. PATIENT NOGUERA'S, OYSTER PICKER ARE EQUAL. LUNGS ARE CLEAR. ABD IS SOFT WITH BSX4. PATIENT IS INCONTINENT OF URINE AT TIMES. UP WITH ASSIST OF 1 STAFF, AND GAIT BELT FOR TRANSFERS. UP IN THE W/C TO THE DINING ROOM PER WC. FALL AND SAFFETY PROTOCOLS IN PLACE. DENIES PAIN AT THIS TIME. CONTINUES TO PROGRESS TOWARDS D/C GOALS. WILL CONTINUE TO MONITER.
[2019-08-26 15:26] LABS: HEMATOCRIT 45.6 % (42.0-52.0); MCH 29.6 pg (26.0-34.0); MCHC 32.9 g/dL (28.0-37.0); RBC 5.07 mil/uL (4.50-6.00); RDW 14.2 % (10.5-14.5); WBC 10.5 thou/uL (4.0-11.0)
[2019-08-26 15:36] LABS: CALCIUM 8.5 mg/dL (8.5-10.1); CREATININE 1.4 mg/dL (0.7-1.3); MAGNESIUM 2.1 mg/dL (1.8-2.4); POTASSIUM 4.5 mmol/L (3.5-5.1)
[2019-08-26 19:54] VITALS: BP 123/81
--- NOTE | 2019-08-27 04:01 | NUR ---
assumed care at approx 1900 evening 08/25. pt lying in bed with head of bed elevated at change of shift. pt pleasant and cooperative, denies complaints. pt stated he was looking forward to being discharged and seeing his . pt voiding per urinal. heart sensor in place intact. pt appears to be sleeping soundly with hourly rounding checks. bed alarm on and call light in reach. will continue to monitor.
[2019-08-27 08:00] VITALS: BP 135/78
[2019-08-27] MEDS ORDERED: MELATONIN5 M1 PO (08:19)
[2019-08-27 09:03] VITALS: BP 135/78
--- NOTE | 2019-08-27 09:55 | NUR ---
basil to dc back to [facility] [place]. dc orders to be faxed to [phone] . bedside nurse to call report to [phone]. pt able to transport by wheel chair van.
--- NOTE | 2019-08-27 11:33 | NUR ---
PT DISCHARGE TO [facility] TODAY AT 1230. CALLED AND GAVE REPORT TO DRE MARIE AT [facility]. PT WILL FOLLOW UP WITH ACID OPERATOR ON SEPTEMBER 26 AT 1:30PM. APPOINTMENT MADE. CM FAX INFORMATION TO [facility]. SHIFT NOTE: ASSUMED CARE AT 0700. REPORTS SLEPT GOOD LAST NIGHT. PATIENT IS ALERT AND ORIENTED TO SELF, AND FORGETFUL. UP TO DINNING ROOM FOR BREAKFAST. ATE 100% BREAKFAST. REASSESSMENT PER CHART. LABS REVIEWED. RESULT LOOKS GREAT EXCEPT CREATINE 1.4 ENCOURAGED PT TO DRINK MORE FLUID. PT INCONT BLADDER AND BM. HAD ONE LARGE LOOSE BM TODAY. ABD IS SOFT WITH BSX4. PATIENT IS INCONTINENT OF URINE AT TIMES. UP WITH ASSIST OF 1 STAFF, AND GAIT BELT FOR TRANSFERS. FALL AND SAFFETY PROTOCOLS IN PLACE. DENIES PAIN AT THIS TIME. PT IS UP TO DINNING ROOM AND EATING LUNCH NOW. WILL CONTINUE TO MONITOR.
--- NOTE | 2019-08-27 12:02 | NUR ---
FAXED DC ORDERS/SUMMARY TO [facility] RECEIVED CONFIRMATION SPOKE WITH JACK THEY ARE ARRANGING TRANSPORT.
== END 2019-08-27 13:18 | disposition home health service (06) | DRG 70 ==
PROVIDERS: Nurse Practitioner; Nurse Practitioner Family; ADMIT Physical Medicine & Rehabilitation
DX: G93.41 Metabolic encephalopathy (principal); J18.9 Pneumonia, unspecified organism; I69.954 Hemiplegia and hemiparesis following unspecified cerebrovascular disease affecting left non-dominant side; I50.32 Chronic diastolic (congestive) heart failure; R13.10 Dysphagia, unspecified; E78.5 Hyperlipidemia, unspecified; I25.10 Atherosclerotic heart disease of native coronary artery without angina pectoris; I48.91 Unspecified atrial fibrillation; F01.50 Vascular dementia, unspecified severity, without behavioral disturbance, psychotic disturbance, mood disturbance, and anxiety; G47.00 Insomnia, unspecified; D64.9 Anemia, unspecified; I11.0 Hypertensive heart disease with heart failure; M19.90 Unspecified osteoarthritis, unspecified site; K21.9 Gastro-esophageal reflux disease without esophagitis; I35.0 Nonrheumatic aortic (valve) stenosis; Z91.81 History of falling; Z95.1 Presence of aortocoronary bypass graft; Z96.649 Presence of unspecified artificial hip joint
CPT/HCPCS: 10112

== ENCOUNTER → 2019-09-27 | Outpatient (CLI) | payer OTHER ==
[~2019-09-27] MED LIST changes: +AUGMENTIN 875-1 EACH PO; +B-12500 MCG PO; +DULCOLAX STOOL100 M1 PO; +MELATONIN5 M1 PO; +NORCO 5-325 TA1 EAC2 PO
== END ==
LOC: SJCVC 13:22
PROVIDERS: ATTEND Internal Medicine
DX: I47.1 Supraventricular tachycardia (principal); E78.5 Hyperlipidemia, unspecified; I48.91 Unspecified atrial fibrillation; G93.41 Metabolic encephalopathy; Z79.899 Other long term (current) drug therapy; Z79.82 Long term (current) use of aspirin

== ENCOUNTER → 2019-10-04 | Outpatient (CLI) | payer OTHER ==
[~2019-10-04] MED LIST changes: -DULCOLAX STOOL100 M1 PO; -NORCO 5-325 TA1 EAC2 PO
[2019-10-04 13:15] VITALS: BP 145/82
--- NOTE | 2019-10-05 13:13 | LINQ ---
[facility] [address] [place] [address] LINQ PROCEDURE REPORT Name: DIAZ MARIN Room #: REG NAKUL Jamison#: [id number] Admission: 10/04/19 Attend Phys: Angel Dyer Discharge: Date of : 37 Report #: [id number] THIS REPORT FOR: cc: [facility] - Family physician unknown FAM - Family physician unknown Angel Dyer MD ~ THIS REPORT FOR: //name// APPROVED REPORT Study performed: 10/04/2019 16:17:23 Patient Status: Out-Patient Room #: Event Personnel: Angel Dyer MD Exam: Linq Recorder Insertion Indications: Palpitations The patient is a 84 year-old male with a history of Palpitations and possible atrial fibrillation. Implanted Devices: Medtronic Linq implantable loop recorder Procedure The patient underwent informed consent. We discussed the details of the procedure including the risks, which include, but not limited to bleeding, infection, vascular damage, cardiac perforation, and pneumothorax. After informed consent was obtained the patient's left chest was prepped and draped in the Residential Builder prepped and hold. Utilizing sterile technique a drape was placed. 1% lidocaine was instilled and a small incision was made with the enclosed skin device. Using both sharp and blunt dissection and extension of an anesthetic to control symptoms the Medtronic Linq device was deployed without complications. Subcutaneous tissue was then closed 2 simple interrupted sutures and the skin was closed with a 3-0 subcuticular stitch. Dermabond Steri-Strips 4 x 4 OpSite were placed. No complication Complications The patient tolerated the procedure well and there were no complications associated with the procedure. Conclusion [facility] [address] [place] [address] LINQ PROCEDURE REPORT Name: TANIADIAZ Room #: REG CL [facility]#: [id number] Admission: 10/04/19 Attend Phys: Angel Luke Discharge: Date of : 37 Report #: [id number] 1. Successful insertion of a Medtronic LINQ implantable loop recorder Recommendations 1. Routine post insertion protocol <ELECTRONICALLY SIGNED> By: Angel Dyer MD 10/05/19 1312 11 11 Angel Dyer MD /INF
== END | disposition home or self-care (01) ==
LOC: CATH 10:29
PROVIDERS: ATTEND Internal Medicine
DX: R00.2 Palpitations (principal); I48.91 Unspecified atrial fibrillation; F32.9 Major depressive disorder, single episode, unspecified; Z98.890 Other specified postprocedural states; Z79.01 Long term (current) use of anticoagulants; Z79.899 Other long term (current) drug therapy

== ENCOUNTER 2019-10-12 12:06 | Emergency (ER) | payer OTHER ==
[~2019-10-12] VITALS: Ht 182.9 cm; Wt 86.2 kg
--- NOTE | ~2019-10-12 | EMS ---
[facility] [address] [place] [address] EMS Patient Care Report Name: DIAZ MARIN Room #: REG RAEANN Jamison#: [id number] Admission: 10/12/19 Attend Phys: Discharge: Date of : 37 Report #: [id number] THIS REPORT FOR: //name// Report Transmitted: 10/12/2019 11:41 EMS Care Summary [facility] MED-ACT Incident [id number] @ 10/12/2019 11:38 Incident Location [address] [place] [address] Patient DIAZ MARIN Male, 84 Years 1935 Patient Address [address] [place] [id number] Patient History Dementia,Hyperlipidemia,Gastro-Esophageal Reflux Disease (GERD),Anemia,Coronary Artery Disease (CAD), Patient Allergies No known allergies, Patient Medications APAP w/Codeine, Famotidine, Lisinopril, Aspirin, Trazodone, Venlafaxine, Senokot, Seroquel, Cholecalciferol, Atorvastatin, Namenda, Loperamide, Toprol, Chief Complaint hip pain Disposition Transported No Lights/[place] Dispatch Reason Falls Transported To [facility] Narrative [facility] [address] [place] [address] EMS Patient Care Report Name: DIAZ MARIN Room #: PATTIE Jamison#: [id number] Admission: 10/12/19 Attend Phys: Discharge: Date of : 37 Report #: [id number] Upon arrival pt came out to meet the crew on the front door of the care home by a wheelchair, presented w/o distress. RN reported that pt fell on October 07. Pt X-Ray was negative of having hip fracture. RN reported that pt's pain level increased over time and needed to be evaluated by ED doctor for pain management. Pt was lifted by [place] lift and placed on the stretcher w/o difficulty. Pt then was moved to the unit. In the unit, pt vitals were monitored and remained stable during transport. Initial Vitals @11:56P: 82,R: 18,Pain: 0/10,SpO2: 99, @11:50P: 84,R: 18,BP: 98/64,Pain: 0/10,GCS: 15,SpO2: 99,Revised Trauma: 12, Assessments @11:57MENTAL:No Abnormalities,SKIN:No Abnormalities,HEENT:Head/Face: No Abnormalities,Eyes: No Abnormalities,Neck/Airway: No Abnormalities,LUNG SOUNDS:General: No Abnormalities,Left Upper: No Abnormalities,Right Upper: No Abnormalities,Left Lower: No Abnormalities,Right Lower: No Abnormalities,ABDOMEN:General: No Abnormalities,Left Upper: No Abnormalities,Right Upper: No Abnormalities,Left Lower: No Abnormalities,Right Lower: No Abnormalities,PELVIS//GI:No Abnormalities,EXTREMITIES:Left Arm: No Abnormalities,Right Arm: No Abnormalities,Left Leg: No Abnormalities,Right Leg: No Abnormalities,PULSE:NEURO:No Abnormalities, Impression Extremity Pain Timeline 11:37,Call Received 11:37,Psap Call 11:38,Dispatched 11:39,En Route 11:44,On Scene 11:46,At Patient 11:50,BP: 98/64 M,PULSE: 84,RR: 18 R,SPO2: 99 Ox,ETCO2: ,BG: ,PAIN: 0,GCS: 15, 11:51,Depart Scene 11:56,BP: / M,PULSE: 82,RR: 18 R,SPO2: 99 Ox,ETCO2: ,BG: ,PAIN: 0,GCS: , 12:02,At Destination 12:19,Call Closed Disclaimer v1.1 Copyright 2020 [employer] This EMS Care Summary contains data elements from the applicable legal record (which may be displayed differently). It is designed to provide pertinent information for the following purposes: continuity of care, clinical quality, and state data reporting. The complete legal record is available to ED staff [address] [address] EMS Patient Care Report Name: DIAZ MARIN Room #: REG RAEANN Jamison#: [id number] Admission: 10/12/19 Attend Phys: Discharge: Date of : 37 Report #: [id number] and administrators of the receiving hospital in ES's Patient Tracker. All data is provided "as is."
[2019-10-12] MEDS ORDERED: DULCOLAX STOOL100 M1 PO (13:03)
[2019-10-12] MEDS ORDERED: NORCO 5-325 TA1 EAC2 PO (13:03)
[2019-10-12 14:21] VITALS: BP 132/83
== END 2019-10-12 15:26 | disposition home or self-care (01) ==
LOC: ER 12:06
DX: S32.592A Other specified fracture of left pubis, initial encounter for closed fracture (principal); E78.5 Hyperlipidemia, unspecified; Z79.899 Other long term (current) drug therapy; Z79.82 Long term (current) use of aspirin; W05.0XXA Fall from non-moving wheelchair, initial encounter; Y93.89 Activity, other specified; Y92.89 Other specified places as the place of occurrence of the external cause; Y99.8 Other external cause status